=== PATIENT | female | born 1960 | race Caucasian/White ===

== ENCOUNTER 2017-12-27 11:21 | Inpatient (IN) | payer BC ==
[2017-12-27] VITALS (9 sets, daily range): BP systolic 106–145; BP diastolic 59–74; PULSE 72–86; RESP 18–20; TEMP 97.2–98.8; O2SAT 96–100
[~2017-12-27] VITALS: Ht 162.6 cm; Wt 57.6 kg
[2017-12-27] MEDS ORDERED: SODIUM CHLOR 0.9% 1000 ML INJ 1,000 ML IV ONE (12:15)
--- NOTE | 2017-12-27 12:22 | PD ---
HPI Chief Complaint: General Weakness Time Seen by Provider: 12:14 Travel History International Travel<30 days: No Contact w/Intl Traveler<30days: No Traveled to known affect area: No History of Present Illness HPI This 57-year-old female is complaining of generalized weakness and shortness of breath. She says she has not felt well for several weeks. She went to an urgent care center yesterday. They called her because her hemoglobin was 5.2 and told her to come to the emergency department. She has no history of anemia. She has not noted any blood in his stool. Her mother 20 years ago of colon cancer. She has not had fever or chills. She is on no medications. She eats a regular diet PFS Past Medical History Medical History: Denies Significant Hx Hx Anticoagulant Therapy: No Cardiovascular Problems: No Chemotherapy: No Cerebrovascular Accident: No Diabetes: No Respiratory: No Tetanus Vaccination: > 5 Years Influenza Vaccination: No Dilation and Curettage (D&C): Yes Past Surgical History Appendectomy: Yes Hysterectomy: No Social History Alcohol Use: No Tobacco Use: Yes (VAPOR) Substance Use: No Allergies-Medications (Allergen,Severity, Reaction): Coded Allergies: No Known Allergies (Unverified , 12/27/17) Reported Meds & Prescriptions Reported Meds & Active Scripts Active No Active Prescriptions or Reported Medications Review of Systems General / Constitutional: No: Fever, Chills Eyes: No: Diploplia HENT: Positive: Lightheadedness, No: Headaches Cardiovascular: No: Chest Pain or Discomfort, Palpitations Respiratory: Positive: Shortness of Breath Gastrointestinal: No: Nausea, Vomiting, Diarrhea, Abdominal Pain Genitourinary: No: Urgency Musculoskeletal: Positive: Weakness Neurologic: Positive: Weakness, No: Focal Abnormalities, Change in Mentation Psychiatric: No: Anxiety, Depression Hematologic/Lymphatic: No: Easy Bruising Physical Exam Narrative GENERAL: Patient appears very pale SKIN: Focused skin assessment warm/dry. Pale HEAD: Atraumatic. Normocephalic. EYES: Pupils equal and round. No scleral icterus. No injection or drainage. ENT: No nasal bleeding or discharge. Mucous membranes pink and moist. NECK: Trachea midline. No JVD. CARDIOVASCULAR: Regular rate and rhythm. No murmur appreciated. RESPIRATORY: No accessory muscle use. Clear to auscultation. Breath sounds equal bilaterally. GASTROINTESTINAL: Abdomen soft, non-tender, nondistended. Hepatic and splenic margins not palpable. Rectal exam there are no masses. Stool is brown but clearly positive for occult blood MUSCULOSKELETAL: No obvious deformities. No clubbing. No cyanosis. No edema. NEUROLOGICAL: Awake and alert. No obvious cranial nerve deficits. Motor grossly within normal limits. Normal speech. PSYCHIATRIC: Appropriate mood and affect; insight and judgment normal. Data Data Last Documented VS Vital Signs Date Time Temp Pulse Resp B/P (MAP) Pulse Ox O2 Delivery O2 Flow Rate FiO2 12/27/17 11:48 Room Air 12/27/17 11:41 98.8 86 18 145/72 (96) 100 Orders Orders Urinalysis - C+S If Indicated (12/27/17 11:33) Electrocardiogram (12/27/17 12:14) Complete Blood Count With Diff (12/27/17 12:14) Comprehensive Metabolic Panel (12/27/17 12:14) Prothrombin Time / Inr (Pt) (12/27/17 12:14) Act Partial Throm Time (Ptt) (12/27/17 12:14) Chest, Single Ap (12/27/17 12:14) Red Blood Cells (Rbc) (12/27/17 12:14) Vitamin B12 (12/27/17 12:14) Folate, Serum (12/27/17 12:14) Ferritin (12/27/17 12:14) Sodium Chlor 0.9% 1000 Ml Inj (Ns 1000 M (12/27/17 12:15) MDM Medical Decision Making Medical Screen Exam Complete: Yes Emergency Medical Condition: Yes Medical Record Reviewed: Yes Differential Diagnosis Differential includes iron deficiency anemia secondary to blood loss Narrative Course Stool is positive for blood. Yesterday her hemoglobin was 5.2 with MCV of 74 and MCH of 19 suggestive of iron deficiency Scripts No Active Prescriptions or Reported Meds Twin Morgan MD December 27, 2017 12:22
[2017-12-27 12:39] LABS: AUTOMATED NEUTROPHIL # 3.2 TH/MM3 (1.8-7.7); BASOPHIL # 0.2 TH/MM3 (0-0.2); BASOPHIL % 3.1 % (0.0-2.0); EOSINOPHIL # 0.1 TH/MM3 (0-0.4); EOSINOPHIL % 0.9 % (0.0-4.0); LYMPH % 26.4 % (9.0-44.0); LYMPHOCYTE # 1.5 TH/MM3 (1.0-4.8); MEAN CELL VOLUME 67.4 FL (80.0-100.0); MEAN CORPUSCULAR HEMOGLOBIN 19.6 PG (27.0-34.0); MEAN PLATELET VOLUME 8.1 FL (7.0-11.0); MONO % 10.8 % (0.0-8.0); MONOCYTE # 0.6 TH/MM3 (0-0.9); NEUT % 58.8 % (16.0-70.0); PLATELET COUNT 430 TH/MM3 (150-450); RED BLOOD COUNT 2.93 MIL/MM3 (4.00-5.30); RED CELL DISTRIBUTION WIDTH 17.5 % (11.6-17.2); WHITE BLOOD COUNT 5.6 TH/MM3 (4.0-11.0)
[2017-12-27 12:43] LABS: CHLORIDE 105 MEQ/L (98-107); SODIUM (NA) 138 MEQ/L (136-145)
--- NOTE | 2017-12-27 12:43 | RADRPT ---
EXAM DATE/TIME: 12/27/2017 12:28 [facility] COMPARISON: No previous studies available for comparison. INDICATIONS : Weakness and short of breath for two weeks. MEDICAL HISTORY : None. SURGICAL HISTORY : None. ENCOUNTER: Initial ACUITY: 1 day PAIN SCORE: 0/10 LOCATION: Bilateral chest FINDINGS: A single view of the chest demonstrates the lungs to be symmetrically aerated without evidence of mas s, infiltrate or effusion. The cardiomediastinal contours are unremarkable. Osseous structures are intact. CONCLUSION: No acute disease. Raffy Ko MD on December 27, 2017 at 12:41 Board Certified Radiologist. This report was verified electronically.
[2017-12-27 12:46] LABS: ALBUMIN 3.6 GM/DL (3.4-5.0); CALCIUM 8.9 MG/DL (8.5-10.1); GLUCOSE,RANDOM 94 MG/DL (74-106); HEMATOCRIT 19.8 % (35.0-46.0); HEMOGLOBIN 5.7 GM/DL (11.6-15.3)
[2017-12-27 12:47] LABS: BLOOD UREA NITROGEN 12 MG/DL (7-18)
[2017-12-27 12:50] LABS: ALT (GPT) 29 U/L (10-53); AST (GOT) 48 U/L (15-37); GLOMERULAR FILTRATION RATE 86 ML/MIN (>89); INTERNATIONAL NORMALIZED RATIO 0.9 RATIO; PROTHROMBIN TIME - PATIENT 9.6 SEC (9.8-11.6)
[2017-12-27 12:51] LABS: TOTAL BILIRUBIN ADULT 0.4 MG/DL (0.2-1.0)
[2017-12-27 12:52] LABS: ALKALINE PHOSPHATASE 128 U/L (45-117)
[2017-12-27 13:08] LABS: ACANTHOCYTES 1+ (NORMAL); KERATOCYTES 1+ (NORMAL); OVALOCYTES 2+ (NORMAL); TARGET CELLS 1+ (NORMAL)
[2017-12-27 13:09] LABS: STOMATOCYTES 1+ (NORMAL)
--- NOTE | 2017-12-27 14:23 | HHI.HP ---
[facility] Service [facility] Hospital[facility] Primary Care Physician Unknown Admission Diagnosis IRON DEFICIENCY ANEMIA Diagnoses: Chief Complaint: Fatigue with new anemia Travel History International Travel<30 Days: No Contact w/Intl Traveler <30 Da: No Traveled to Known Affected Are: No History of Present Illness Patient is a 57-year-old female with minimal past medical history he admits several weeks of increased malaise weakness and short of breath. She went to an urgent care for her first primary care visit and was called because the results of her hemoglobin was 5.2. Patient did come here for further evaluation is found to be fatigued and pale with a hemoglobin of 5.7 as well as heme positive stools in the emergency room. Patient reports she has never had any problems with anemia before her last menstrual period was over 10 years ago and patient says she is menopausal. She says there is a family history: Breast cancer. She has not seen any breast masses or had any change in stool output or weight loss. Patient is admitted to the hospital for further evaluation of this problem Review of Systems Constitutional: COMPLAINS OF: Fatigue, Dizziness, DENIES: Diaphoretic episodes , Fever, Weight gain, Weight loss, Chills, Change in appetite, Night Sweats Endocrine: DENIES: Abnorml menstrual pattern, Heat/cold intolerance, Polydipsia , Polyuria, Polyphagia Eyes: DENIES: Blurred vision, Diplopia, Eye inflammation, Eye pain, Vision loss , Photosensitivity, Double Vision Ears, nose, mouth, throat: DENIES: Tinnitus, Hearing loss, Vertigo, Nasal discharge, Oral lesions, Throat pain, Hoarseness, Ear Pain, Running Nose, Epistaxis, Sinus Pain, Toothache, Odynophagia Respiratory: DENIES: Apneas, Cough, Snoring, Wheezing, Hemoptysis, Sputum production, Shortness of breath Cardiovascular: DENIES: Chest pain, Palpitations, Syncope, Dyspnea on Exertion , PND, Lower Extremity Edema, Orthopnea, Claudication Gastrointestinal: DENIES: Abdominal pain, Black stools, Bloody stools, Constipation, Diarrhea, Nausea, Vomiting, Difficulty Swallowing, Anorexia Integumentary: DENIES: Abnormal pigmentation, Pruritus, Rash, Nail changes, Breast masses, Breast skin changes, Nipple discharge Hematologic/lymphatic: DENIES: Bruising, Lymphadenopathy Immunologic/allergic: DENIES: Eczema, Urticaria Neurologic: DENIES: Abnormal gait, Headache, Localized weakness, Paresthesias, Seizures, Speech Problems, Tremor, Poor Balance Psychiatric: DENIES: Anxiety, Confusion, Mood changes, Depression, Hallucinations, Agitation, Suicidal Ideation, Homicidal Ideation, Delusions Past Family Social History Past Medical History Denies Past Surgical History Appendectomy Reported Medications Denies Allergies: Coded Allergies: No Known Allergies (Unverified , 12/27/17) Active Ordered Medications Reviewed in the EMR Family History Mother had lymphoma and colon cancer but is alive Father had prostate cancer and Parkinson's and hypertension Sister from breast cancer Social History No tobacco but invades No alcohol dependency Physical Exam Vital Signs Vital Signs Date Time Temp Pulse Resp B/P (MAP) Pulse Ox O2 Delivery O2 Flow Rate FiO2 12/27/17 13:40 97.4 72 20 120/69 (86) 97 12/27/17 13:33 88 18 118/74 (89) 99 12/27/17 11:48 Room Air 12/27/17 11:41 98.8 86 18 145/72 (96) 100 Physical Exam GENERAL: This is a well-nourished, well-developed patient, pale and tired SKIN: No rashes, ecchymoses or lesions. Cool and dry. HEAD: Atraumatic. Normocephalic. No temporal or scalp tenderness. EYES: Pupils equal round and reactive. Extraocular motions intact. No scleral icterus. No injection or drainage. ENT: Nose without bleeding, purulent drainage or septal hematoma. Throat without erythema, tonsillar hypertrophy or exudate. Uvula midline. Airway patent. NECK: Trachea midline. No JVD or lymphadenopathy. Supple, nontender, no meningeal signs. CARDIOVASCULAR: Regular rate and rhythm without murmurs, gallops, or rubs. RESPIRATORY: Clear to auscultation. Breath sounds equal bilaterally. No wheezes , rales, or rhonchi. GASTROINTESTINAL: Abdomen soft, non-tender, nondistended. No hepato-splenomegaly , or palpable masses. No guarding. MUSCULOSKELETAL: Extremities without clubbing, cyanosis, or edema. No joint tenderness, effusion, or edema noted. No calf tenderness. Negative Homans sign bilaterally. NEUROLOGICAL: Awake and alert. Cranial nerves II through XII intact. Motor and sensory grossly within normal limits. Five out of 5 muscle strength in all muscle groups. Normal speech. Laboratory Laboratory Tests Test 12/27/17 12:00 White Blood Count 5.6 Red Blood Count 2.93 Hemoglobin 5.7 Hematocrit 19.8 Mean Corpuscular Volume 67.4 Mean Corpuscular Hemoglobin 19.6 Mean Corpuscular Hemoglobin Concent 29.0 Red Cell Distribution Width 17.5 Platelet Count 430 Mean Platelet Volume 8.1 Neutrophils (%) (Auto) 58.8 Lymphocytes (%) (Auto) 26.4 Monocytes (%) (Auto) 10.8 Eosinophils (%) (Auto) 0.9 Basophils (%) (Auto) 3.1 Neutrophils # (Auto) 3.2 Lymphocytes # (Auto) 1.5 Monocytes # (Auto) 0.6 Eosinophils # (Auto) 0.1 Basophils # (Auto) 0.2 CBC Comment AUTO DIFF Differential Comment AUTO DIFF CONFIRMED Target Cells 1+ Ovalocytes 2+ Stomatocytes 1+ Acanthocytes 1+ Keratocytes 1+ Prothrombin Time 9.6 Prothromb Time International Ratio 0.9 Activated Partial Thromboplast Time 21.9 Blood Urea Nitrogen 12 Creatinine 0.70 Random Glucose 94 Total Protein 8.0 Albumin 3.6 Calcium Level 8.9 Alkaline Phosphatase 128 Aspartate Amino Transf (AST/SGOT) 48 Alanine Aminotransferase (ALT/SGPT) 29 Total Bilirubin 0.4 Sodium Level 138 Potassium Level 4.5 Chloride Level 105 Carbon Dioxide Level 27.0 Anion Gap 6 Estimat Glomerular Filtration Rate 86 Result Diagram: 12/27/17 1200 12/27/17 1200 Imaging Last Impressions Chest X-Ray 12/27/17 1214 Signed Impressions: Service Date/Time: Wednesday, December 27, 2017 12:28 - CONCLUSION: No acute disease. MD Carlos Eduardo Chapman VTE Risk Assessment Caprini VTE Risk Assessment: No/Low Risk (score <= 1) VTE Pharm Contraindication: Active bleeding Caprini Risk Assessment Model Point Value = 1 Point Value = 2 Point Value = 3 Point Value = 5 Age 41-60 Minor surgery BMI > 25 kg/m2 Swollen legs Varicose veins or History of unexplained or recurrent spontaneous Oral contraceptives or hormone replacement Sepsis (< 1 month) Serious lung disease, including pneumonia (< 1 month) Abnormal pulmonary function Acute myocardial infarction Congestive heart failure (< 1 month) History of inflammatory bowel disease Medical patient at bed rest Age 61-74 Arthroscopic surgery Major open surgery (> 45 min) Laparoscopic surgery (> 45 min) Malignancy Confined to bed (> 72 hours) Immobilizing plaster cast Central venous access Age >= 75 History of VTE Family history of VTE Factor V Leiden Prothrombin [id number] Lupus anticoagulant Anticardiolipin antibodies Elevated serum homocysteine Heparin-induced thrombocytopenia Other congenital or acquired thrombophilia Stroke (< 1 month) Elective arthroplasty Hip, pelvis, or leg fracture Acute spinal cord injury (< 1 month) Prophylaxis Regimen Total Risk Factor Score Risk Level Prophylaxis Regimen 0-1 Low Early ambulation 2 Moderate Order ONE of the following: *Sequential Compression Device (SCD) *Heparin 5000 units SQ BID 3-4 Higher Order ONE of the following medications: *Heparin 5000 units SQ TID *Enoxaparin/Lovenox 40 mg SQ daily (WT < 150 kg, CrCl > 30 mL/min) *Enoxaparin/Lovenox 30 mg SQ daily (WT < 150 kg, CrCl > 10-29 mL/min) *Enoxaparin/Lovenox 30 mg SQ BID (WT < 150 kg, CrCl > 30 mL/min) AND/OR *Sequential Compression Device (SCD) 5 or more Highest Order ONE of the following medications: *Heparin 5000 units SQ TID (Preferred with Epidurals) *Enoxaparin/Lovenox 40 mg SQ daily (WT < 150 kg, CrCl > 30 mL/min) *Enoxaparin/Lovenox 30 mg SQ daily (WT < 150 kg, CrCl > 10-29 mL/min) *Enoxaparin/Lovenox 30 mg SQ BID (WT < 150 kg, CrCl > 30 mL/min) AND *Sequential Compression Device (SCD) Assessment and Plan Problem List: (1) GI bleed ICD Code: K92.2 - Gastrointestinal hemorrhage, unspecified Plan: Rule out ulcer versus mass Patient with strong family history of colon cancer and severe anemia GI consult pending Continue following up CT abdomen pelvis (2) Anemia ICD Code: D64.9 - Anemia, unspecified Plan: Symptomatic, acute, likely secondary to acute GI losses We will transfuse and follow trend Physician Certification 2 Midnight Certification Type: Admission for Inpatient Services Order for Inpatient Services The services are ordered in accordance with Medicare regulations or non- Medicare payer requirements, as applicable. In the case of services not specified as inpatient-only, they are appropriately provided as inpatient services in accordance with the 2-midnight benchmark. Estimated LOS (days): 2 2 days is the estimated time the patient will need to remain in the hospital, assuming treatment plan goals are met and no additional complications. Post-Hospital Plan: Home Mary Smith MD December 27, 2017 14:23
[2017-12-27] MEDS ORDERED: SODIUM CHLORIDE 0.9% FLUSH 10 ML FLUSH IV FLUSH PRN (14:30)
[2017-12-27] MEDS ORDERED: ONDANSETRON HCL 4 MG/2 ML VIAL IV PUSH PRN (14:30)
[2017-12-27 15:06] LABS: % SATURATION IRON PROFILE 5.1 % (20-50); FERRITIN 4 NG/ML (8-252); IRON (FE) 23 MCG/DL (50-170); TOTAL IRON BINDING CAPACITY 448 MCG/DL (250-450)
[2017-12-27 15:17] LABS: FOLATE GREATER THAN 20.0 NG/ML (3.1-17.5)
[2017-12-27] MEDS ORDERED: DIATRIZOATE MEGLUM/DIATRIZOATE SOD 9 ML CUP PO ONE (15:30)
[2017-12-27 17:35] LABS: BILIRUBIN, URINE NEG (NEG); BLOOD, URINE NEG (NEG); GLUCOSE,URINE NEG (NEG); KETONE, URINE NEG (NEG); NITRITE,URINE NEG (NEG); URINE COLOR YELLOW (YELLW/STRAW); URINE LEUKOCYTE ESTERASE NEG (NEG)
[2017-12-27 17:43] LABS: RBC, URINE 0-3 /hpf (0-3); WBC, URINE 0-2 /hpf (0-5)
[2017-12-27] MEDS: SODIUM CHLORIDE 0.9% FLUSH 10 ML FLUSH IV FLUSH SCH (21:00)
--- NOTE | 2017-12-27 23:21 | RADRPT ---
EXAM DATE/TIME: 12/27/2017 22:38 [facility] COMPARISON: No previous studies available for comparison. INDICATIONS : Blood in stool. ORAL CONTRAST: Prescribed oral contrast ingested. RADIATION DOSE: 7.30 CTDIvol (mGy) MEDICAL HISTORY : None SURGICAL HISTORY : Appendectomy. ENCOUNTER: Initial ACUITY: 1 week PAIN SCALE: 0/10 LOCATION: abdomen TECHNIQUE: Volumetric scanning of the abdomen and pelvis was performed. Using automated exposure control and adjustment of the mA and/or kV according to patient size, radiation dose was kept as low as reasonably achievable to obtain optimal diagnostic quality images. DICOM format image data is av ailable electronically for review and comparison. FINDINGS: LOWER LUNGS: Minimal atelectasis or scarring in the right middle lobe. Lung bases are otherwise c lear LIVER: 1.2 cm benign-appearing cyst is identified posteriorly in the right hepatic lobe. However, in the hepatic dome, is a 3.4 cm nodule that cannot be classified as a simple cyst and is concerning for a neoplastic process. There may be a second, 1 cm lesion laterally in the right hepatic lobe mor e inferiorly. There is no dilation of the biliary tree. No calcified gallstones. SPLEEN: Normal size without lesion. PANCREAS: Within normal limits. KIDNEYS: Normal in size and shape. There is no mass, stone, or hydronephrosis. ADRENAL GLANDS: Within normal limits. VASCULAR: There is no aortic aneurysm. BOWEL/MESENTERY: Abnormal bowel wall thickening in the region of the cecum. Regional prominent ly mph nodes measuring upwards of 1.6 cm in diameter.. ABDOMINAL WALL: Within normal limits. RETROPERITONEUM: Prominent 2 cm lymph node at the aortic bifurcation. BLADDER: No wall thickening or mass. REPRODUCTIVE: Within normal limits. INGUINAL: There is no lymphadenopathy or hernia. MUSCULOSKELETAL: Within normal limits for patient age. CONCLUSION: 1. 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 Possible second, 1 cm metastatic lesio n more inferiorly and laterally in the right hepatic lobe. At some point, a contrasted CT or MR of th e abdomen should be performed for further characterization. 2. Benign-appearing 1.2 cm cyst posteriorly in the right hepatic lobe. 3. Benign-appearing atelectasis or scarring medially in the right middle lobe. Remy Pastrana MD on December 27, 2017 at 23:10 Board Certified Radiologist. This report was verified electronically.
[2017-12-28] VITALS (7 sets, daily range): BP systolic 101–120; BP diastolic 56–64; PULSE 65–84; RESP 16–20; TEMP 96.6–98.6; O2SAT 69–99
[2017-12-28 06:32] LABS: AUTOMATED NEUTROPHIL # 3.3 TH/MM3 (1.8-7.7); BASOPHIL % 0.8 % (0.0-2.0); EOSINOPHIL # 0.1 TH/MM3 (0-0.4); EOSINOPHIL % 2.2 % (0.0-4.0); HEMATOCRIT 24.6 % (35.0-46.0); HEMOGLOBIN 7.9 GM/DL (11.6-15.3); LYMPH % 30.4 % (9.0-44.0); LYMPHOCYTE # 1.7 TH/MM3 (1.0-4.8); MEAN CORPUSCULAR HEMOGLOBIN 23.3 PG (27.0-34.0); MEAN PLATELET VOLUME 8.4 FL (7.0-11.0); MONO % 11.4 % (0.0-8.0); MONOCYTE # 0.6 TH/MM3 (0-0.9); NEUT % 55.2 % (16.0-70.0); PLATELET COUNT 374 TH/MM3 (150-450); RED BLOOD COUNT 3.37 MIL/MM3 (4.00-5.30); RED CELL DISTRIBUTION WIDTH 18.7 % (11.6-17.2); WHITE BLOOD COUNT 5.7 TH/MM3 (4.0-11.0)
[2017-12-28 07:43] LABS: ACANTHOCYTES 1+ (NORMAL); KERATOCYTES OCC (NORMAL); OVALOCYTES 1+ (NORMAL); TARGET CELLS 1+ (NORMAL)
[2017-12-28] MEDS: SODIUM CHLORIDE 0.9% FLUSH 10 ML FLUSH IV FLUSH SCH ×2 (09:00→20:14)
--- NOTE | 2017-12-28 11:23 | HHI.PR ---
Subjective Remarks Patient seen and evaluated. CT abdomen pelvis noted and results discussed with patient. GI consult appreciated. Objective Vitals Vital Signs Date Time Temp Pulse Resp B/P (MAP) Pulse Ox O2 Delivery O2 Flow Rate FiO2 12/28/17 08:19 72 12/28/17 08:00 98.4 65 16 106/58 (74) 99 12/28/17 04:00 97.4 70 20 102/56 (71) 98 12/28/17 03:30 97.4 70 20 102/56 97 12/28/17 00:05 98.6 84 18 101/64 98 12/27/17 23:53 97.2 83 18 108/59 97 12/27/17 23:50 97.2 83 18 108/59 (75) 97 12/27/17 22:15 98.4 72 18 106/60 97 12/27/17 20:00 98.4 74 18 112/60 (77) 100 12/27/17 16:52 98.6 74 20 121/74 12/27/17 16:05 97.8 72 20 107/66 (80) 96 12/27/17 13:40 97.4 72 20 120/69 (86) 97 12/27/17 13:33 88 18 118/74 (89) 99 12/27/17 11:48 Room Air 12/27/17 11:41 98.8 86 18 145/72 (96) 100 I/O 12/27/17 12/27/17 12/27/17 12/28/17 12/28/17 12/28/17 07:00 15:00 23:00 07:00 15:00 23:00 Intake Total 170 ml 1140 ml 1000 ml Balance 170 ml 1140 ml 1000 ml Intake Oral 120 ml 240 ml IV Total 1000 ml Packed Cells 800 ml Blood Product IV Normal Saline Flush 50 ml 100 ml # Voids 1 5 # Bowel Movements 5 Result Diagram: 12/28/17 0600 12/27/17 1200 Objective Remarks GENERAL: This is a well-nourished, well-developed patient, in no apparent distress. CARDIOVASCULAR: Regular rate and rhythm without murmurs, gallops, or rubs. RESPIRATORY: Clear to auscultation. Breath sounds equal bilaterally. No wheezes , rales, or rhonchi. GASTROINTESTINAL: Abdomen soft, non-tender, nondistended. Normal active bowel sounds MUSCULOSKELETAL: Extremities without clubbing, cyanosis, or edema. NEURO: Alert & Oriented x4 to person, place, time, situation. Moves all ext x4 A/P Problem List: (1) GI bleed ICD Code: K92.2 - Gastrointestinal hemorrhage, unspecified Plan: Worrisome for cecal malignancy. CT findings discussed with patient. For endoscopy in a.m. Hemoglobin improved Patient with strong family history of colon cancer and severe anemia (2) Anemia ICD Code: D64.9 - Anemia, unspecified Plan: Symptomatic, acute, likely secondary to acute GI losses improved after transfusion Mary Smith MD December 28, 2017 11:23
[2017-12-28] MEDS ORDERED: GADODIAMIDE PF 287 MG/ML 20 ML VIAL (for RAD MRI) IVCONTRAST ONE (11:46)
--- NOTE | 2017-12-28 13:47 | RADRPT ---
EXAM DATE/TIME: 12/28/2017 11:42 [facility] COMPARISON: CT ABDOMEN & PELVIS W/O CONTRAST, December 27, 2017, 22:38. INDICATIONS : Liver lesion. Blood in stools. CONTRAST: 11 cc Omniscan (gadodiamide) IV MEDICAL HISTORY : None. SURGICAL HISTORY : Appendectomy. ENCOUNTER: Initial ACUITY: 1 day PAIN SCORE: 0/10 LOCATION: Abdomen. TECHNIQUE: Multiplanar, multisequence magnetic resonance imaging of the abdomen was performed without and with i ntravenous contrast. FINDINGS: Problem specific findings: The axial T1 weighted images demonstrate a 3.2 x 3.3 cm area of decreased T1 signal within the centra l aspect of segment 8 of the right lobe of the liver. Following contrast enhancement the immediate po stcontrast imaging demonstrates vague enhancement around the margins of the lesion as well as some en hancement and most of segment 8 of the liver. On the subsequent images there is heterogeneous contras t enhancement of the lesion. There is increased T2 signal within the lesion on the diffusion restrict ion images. The overall appearance of this would be concerning for malignancy. This is a location whi ch would be amenable to CT-guided biopsy. The post contrast T1-weighted images demonstrate at least 3 other scattered subcentimeter lesions with subtle peripheral enhancement on the delayed postcontrast imaging. There is a 7 mm lesion seen in segment 7. There is a small lesion seen in segment 5 and a p robable lesion in the inferior aspect of segment 8 as well. The examination also demonstrates a cystic lesion measuring 1.5 x 1.0 cm in the posterior aspect of the right lobe. There is no contrast-enhancement within this. It is increased in signal the T2 we ighted images. Findings would be most compatible with a small simple cyst. The remainder of the hepat ic parenchyma demonstrates homogeneous enhancement. MRI source data: The appearance of the spleen, pancreas, adrenal glands and kidneys is within normal limits. There is no retroperitoneal lymphadenopathy. No free fluid is seen within the abdomen. CONCLUSION: 1. The examination demonstrates a 3.2 x 3.3 cm mass in segment 8 of the liver. This lesion would be c oncerning for malignancy. Less likely consideration would be an area of hepatic abscess. There is at least 3 other small lesions identified as described above. These are too small to definitively charac terize. The multiple nature of these lesions would make malignancy the primary consideration. 2. 1.5 x 1.0 cm cyst in the posterior aspect of the right lobe of the liver involving segment 7. Zeus Meade MD on December 28, 2017 at 13:02 Board Certified Radiologist. This report was verified electronically.
--- NOTE | 2017-12-28 14:01 | EKG ---
Date Performed: 12/27/2017 Time Performed: 12:26:11 PTAGE: 57 years EKG: Sinus rhythm NORMAL ECG NO PREVIOUS TRACING DOCTOR: Janelle Hale Interpretating Date/Time 12/28/2017 13:58:08
[2017-12-28] MEDS ORDERED: MAGNESIUM CITRATE SOLN 300 ML BTL PO ONE (16:45)
--- NOTE | 2017-12-28 17:13 | MB ---
cc: Aishwarya Crews MD, Beatrice S MD DATE: 12/28/2017 REFERRING PHYSICIAN: Dr. Mary Smith The patient was seen earlier in the day. HISTORY OF PRESENT ILLNESS: Ms. Shannon is a very pleasant 57-year-old lady with no major medical problems. She was sent to the emergency room for evaluation of severe anemia. The patient had regular blood work and was noted to have significant anemia. She denies any nausea, vomiting, abdominal pain, melena, hematemesis, hematochezia, dysphagia, odynophagia or weight loss. Her last colonoscopy was many, many years ago, approximately 20 years ago. She has family history of breast cancer and colon cancer, did not have a followup study since 20 years ago. Patient is feeling weak and shortness of breath. PAST MEDICAL HISTORY: She has none. PAST SURGICAL HISTORY: Appendectomy. MEDICATIONS: None. ALLERGIES: NO KNOWN ALLERGIES. FAMILY HISTORY: Mother had lymphoma and colon cancer. Father had prostate cancer and Parkinson disease. Sister from breast cancer. SOCIAL HISTORY: Denies smoking, drinking or drug use. REVIEW OF SYSTEMS: CONSTITUTIONAL: She denies any fever, chills, weight loss or weight gain. ENT: No alteration in her baseline hearing or visual activity. PULMONARY: Denies any chest pain, shortness of breath. GASTROINTESTINAL:As above. GENITOURINARY: Denies dysuria, hematuria. HEMATOLOGIC: Denies any history of anemia or bleeding disorder. SKIN: No alteration of baseline skin lesion. NEUROLOGIC: No history of TIA or CVA kind of symptoms. PHYSICAL EXAMINATION: GENERAL: She is sitting comfortably in bed in no acute distress. Pale. VITAL SIGNS: Her vitals are stable. Temperature is 97.4, pulse is 83, blood pressure 102/56. HEENT: PERRLA, pale. NECK: No JVD. No lymphadenopathy. CHEST: Clear to auscultation and palpation. HEART: S1, S2. No murmur. ABDOMEN: Soft, nontender. Bowel sounds are present. 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 No focal signs identified. LABORATORY DATA: Her hemoglobin on admission was 5.7, currently 7.9, MCV 67, currently 73, platelets 430, white count is 5.7. Her chemistry was suggestive of iron saturation of 5, AST 48, alkaline phosphatase 128. 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 MRI of the abdomen is recommended. That was ordered. Cyst in the posterior right hepatic lobe. ASSESSMENT AND PLAN: Ms. Shannon is a 57-year-old lady admitted with symptomatic iron deficiency anemia. CT suggested presence of the cecal mass, possible metastatic to the liver, most likely the cause of her symptoms. Strong family history of breast cancer and colon cancer. Last colonoscopy more than 20 years ago. Most likely, this is consistent with colon cancer. RECOMMENDATIONS: EGD, colonoscopy in the morning. Follow up MRI of the liver, tumor markers. May consider a CT ultrasound-guided liver biopsy and oncology consultation. . Risks, benefits of the above procedures were discussed with the patient and she is agreeing with it. I would like to thank Dr. Smith for referring her to our office for consultation. Thank you again. We will continue to follow the patient along with you. Aishwarya Crews MD BSB/SA , 04:53 PM , 05:13 PM
[2017-12-28] MEDS: LACTATED RINGER'S 1000 ML INJ 1,000 ML IV SCH (17:30)
[2017-12-28 20:19] LABS: CARCINOEMBRYONIC ANTIGEN 1.1 NG/ML (0.2-5.0)
[2017-12-28 20:56] LABS: CA 19-9 9.7 U/ML (0.0-35.0)
[2017-12-29] VITALS: BP 107/57; PULSE 66; RESP 20; TEMP 96.5; O2SAT 97
[2017-12-29] MEDS: LACTATED RINGER'S 1000 ML INJ 1,000 ML IV SCH (05:25)
[2017-12-29 06:56] LABS: AUTOMATED NEUTROPHIL # 2.5 TH/MM3 (1.8-7.7); BASOPHIL % 0.8 % (0.0-2.0); EOSINOPHIL # 0.1 TH/MM3 (0-0.4); EOSINOPHIL % 2.2 % (0.0-4.0); HEMATOCRIT 27.1 % (35.0-46.0); HEMOGLOBIN 8.4 GM/DL (11.6-15.3); LYMPH % 39.3 % (9.0-44.0); LYMPHOCYTE # 2.1 TH/MM3 (1.0-4.8); MEAN CELL VOLUME 74.6 FL (80.0-100.0); MEAN CORPUSCULAR HEMOGLOBIN 23.2 PG (27.0-34.0); MEAN CORPUSCULAR HGB CONC 31.1 % (32.0-36.0); MEAN PLATELET VOLUME 8.6 FL (7.0-11.0); MONO % 10.7 % (0.0-8.0); MONOCYTE # 0.6 TH/MM3 (0-0.9); PLATELET COUNT 398 TH/MM3 (150-450); RED BLOOD COUNT 3.64 MIL/MM3 (4.00-5.30); RED CELL DISTRIBUTION WIDTH 19.1 % (11.6-17.2); WHITE BLOOD COUNT 5.3 TH/MM3 (4.0-11.0)
[2017-12-29 07:28] LABS: TARGET CELLS 1+ (NORMAL)
[2017-12-29 07:29] LABS: ACANTHOCYTES 1+ (NORMAL); KERATOCYTES OCC (NORMAL); OVALOCYTES 1+ (NORMAL)
[2017-12-29 08:00] VITALS: BP 110/71; PULSE 68; RESP 16; TEMP 96.1; O2SAT 96
[2017-12-29 08:36] VITALS: BP 110/71; PULSE 68; RESP 16; TEMP 96.1; O2SAT 96
[2017-12-29] MEDS: SODIUM CHLORIDE 0.9% FLUSH 10 ML FLUSH IV FLUSH SCH (08:39)
--- NOTE | 2017-12-29 09:39 | PD.PROCEDR ---
GI Procedure PROCEDURE PERFORMED Upper endoscopy with biopsy Incomplete: INDICATION FOR PROCEDURE Iron deficiency anemia PROCEDURE: The procedure, risks and benefits were discussed with Ms. Shannon and informed consent was obtained. Anesthesia sedated her with Diprivan. She was placed in the left lateral decubitus position. EGD: The Pentax videoscope was introduced through the oropharynx and advanced to the second portion of the duodenum under direct visualization. Retroflexion was performed in the stomach. Biopsy from the antrum Colonoscopy: The Pentax videoscope was introduced through the rectum and advanced to sigmoid. Retroflexion was performed in the rectum. Colonic prep was poor ESTIMATED BLOOD LOSS: None SPECIMENS REMOVED: [] COMPLICATIONS: None IMPRESSION: Severe gastritis biopsy from the antrum Mild esophagitis grade A Duodenum is normal No sign of active bleeding Incomplete colonoscopy I only went about 15 cm with poor prep PLAN: No NSAIDs Protonix 40 mg daily Follow-up biopsy Repeat prep for colonoscopy tomorrow Nathaniel Allan MD December 29, 2017 09:39
--- NOTE | 2017-12-29 09:42 | HHI.GIFU ---
Subjective Remarks Patient laying in bed comfortably, no complain Objective Vitals I&O Vital Signs Date Time Temp Pulse Resp B/P (MAP) Pulse Ox O2 Delivery O2 Flow Rate FiO2 12/29/17 08:36 96.1 68 16 110/71 (84) 96 12/29/17 08:00 96.1 68 16 110/71 (84) 96 12/29/17 00:00 96.5 66 20 107/57 (74) 97 12/28/17 20:00 98.3 68 20 120/61 (80) 97 12/28/17 16:00 96.6 72 16 119/64 (82) 98 I/O 12/28/17 12/28/17 12/28/17 12/29/17 12/29/17 12/29/17 07:00 15:00 23:00 07:00 15:00 23:00 Intake Total 1140 ml 1000 ml 600 ml 971 ml Balance 1140 ml 1000 ml 600 ml 971 ml Intake Oral 240 ml 600 ml 0 ml IV Total 1000 ml 971 ml Packed Cells 800 ml Blood Product IV Normal Saline Flush 100 ml # Voids 5 3 2 # Bowel Movements 5 Laboratory Laboratory Tests Test 12/28/17 16:20 12/29/17 06:09 Tumor Marker Alpha Fetoprotein 3.1 Carcinoembryonic Antigen 1.1 CA 19-9 Antigen 9.7 Hepatitis A IgM Antibody NONREACTIVE Hepatitis B Surface Antigen NONREACTIVE Hepatitis B Core IgM Antibody NONREACTIVE Hepatitis C IgG Antibody NONREACTIVE White Blood Count 5.3 Red Blood Count 3.64 Hemoglobin 8.4 Hematocrit 27.1 Mean Corpuscular Volume 74.6 Mean Corpuscular Hemoglobin 23.2 Mean Corpuscular Hemoglobin Concent 31.1 Red Cell Distribution Width 19.1 Platelet Count 398 Mean Platelet Volume 8.6 Neutrophils (%) (Auto) 47.0 Lymphocytes (%) (Auto) 39.3 Monocytes (%) (Auto) 10.7 Eosinophils (%) (Auto) 2.2 Basophils (%) (Auto) 0.8 Neutrophils # (Auto) 2.5 Lymphocytes # (Auto) 2.1 Monocytes # (Auto) 0.6 Eosinophils # (Auto) 0.1 Basophils # (Auto) 0.0 CBC Comment AUTO DIFF Differential Comment AUTO DIFF CONFIRMED Target Cells 1+ Ovalocytes 1+ Acanthocytes 1+ Keratocytes OCC Physical Exam HEENT: Pupils round and reactive to light; normocephalic; atraumatic; no jaundice. Throat is clear. NECK: Neck is supple, no JVD, no lymphadenopathy. CHEST: Chest is clear to auscultation and percussion. CARDIAC: Regular rate and rhythm with no murmur gallop or rubs. ABDOMEN: Soft, nondistended, nontender; no hepatosplenomegaly; bowel sounds are present in all four quadrants. EXTREMITIES: No clubbing, cyanosis, or edema. SKIN: Normal; no rash; no jaundice. LEAD CARPENTER: No focal deficits; alert and oriented times three. Assessment and Plan Plan Patient has significant anemia with iron deficiency, had an upper endoscopy today, incomplete colonoscopy because of poor prep IMPRESSION: Severe gastritis biopsy from the antrum Mild esophagitis grade A Duodenum is normal No sign of active bleeding Incomplete colonoscopy I only went about 15 cm with poor prep PLAN: No NSAIDs Protonix 40 mg daily Follow-up biopsy Repeat prep for colonoscopy tomorrow Nathaniel Allan MD December 29, 2017 09:42
[2017-12-29] MEDS ORDERED: MAGNESIUM CITRATE SOLN 300 ML BTL PO ONE (10:00)
[2017-12-29 12:00] VITALS: BP 111/59; PULSE 60; RESP 16; TEMP 97.4; O2SAT 97
--- NOTE | 2017-12-29 13:32 | HHI.DCPOC ---
Discharge Care Plan Diagnosis: (1) Anemia (2) Liver mass (3) GI bleed Goals to Promote Your Health * To prevent worsening of your condition and complications * To maintain your health at the optimal level Directions to Meet Your Goals Take your medications as prescribed Follow your dietary instruction Follow activity as directed Keep your appointments as scheduled Take your immunizations and boosters as scheduled If your symptoms worsen call your PCP, if no PCP go to Urgent Care Center or Emergency Room Smoking is Dangerous to Your Health. Avoid second hand smoke Call the 24-hour hour crisis hotline for domestic abuse at Mary Smith MD December 29, 2017 13:32
--- NOTE | 2017-12-29 13:34 | HHI.DS ---
Discharge Summary Admission Date December 27, 2017 at 13:15 Discharge Date: December 29, 2017 Admitting Diagnosis IRON DEFICIENCY ANEMIA (1) GI bleed ICD Code: K92.2 - Gastrointestinal hemorrhage, unspecified (2) Anemia ICD Code: D64.9 - Anemia, unspecified Procedures Upper endoscopy: Gastritis Brief History - From Admission Patient is a 57-year-old female with minimal past medical history he admits several weeks of increased malaise weakness and short of breath. She went to an urgent care for her first primary care visit and was called because the results of her hemoglobin was 5.2. Patient did come here for further evaluation is found to be fatigued and pale with a hemoglobin of 5.7 as well as heme positive stools in the emergency room. Patient reports she has never had any problems with anemia before her last menstrual period was over 10 years ago and patient says she is menopausal. She says there is a family history: Breast cancer. She has not seen any breast masses or had any change in stool output or weight loss. Patient is admitted to the hospital for further evaluation of this problem CBC/BMP: 12/29/17 0609 12/27/17 1200 Significant Findings Laboratory Tests Test 12/27/17 12:00 12/27/17 17:00 12/28/17 06:00 12/28/17 16:20 Red Blood Count 2.93 MIL/MM3 (4.00-5.30) 3.37 MIL/MM3 (4.00-5.30) Hemoglobin 5.7 GM/DL (11.6-15.3) 7.9 GM/DL (11.6-15.3) Hematocrit 19.8 % (35.0-46.0) 24.6 % (35.0-46.0) Mean Corpuscular Volume 67.4 FL (80.0-100.0) 73.0 FL (80.0-100.0) Mean Corpuscular Hemoglobin 19.6 PG (27.0-34.0) 23.3 PG (27.0-34.0) Mean Corpuscular Hemoglobin Concent 29.0 % (32.0-36.0) Red Cell Distribution Width 17.5 % (11.6-17.2) 18.7 % (11.6-17.2) Monocytes (%) (Auto) 10.8 % (0.0-8.0) 11.4 % (0.0-8.0) Basophils (%) (Auto) 3.1 % (0.0-2.0) Target Cells 1+ (NORMAL) 1+ (NORMAL) Ovalocytes 2+ (NORMAL) 1+ (NORMAL) Stomatocytes 1+ (NORMAL) Acanthocytes 1+ (NORMAL) 1+ (NORMAL) Keratocytes 1+ (NORMAL) OCC (NORMAL) Prothrombin Time 9.6 SEC (9.8-11.6) Activated Partial Thromboplast Time 21.9 SEC (24.3-30.1) Alkaline Phosphatase 128 U/L (45-117) Aspartate Amino Transf (AST/SGOT) 48 U/L (15-37) Estimat Glomerular Filtration Rate 86 ML/MIN (>89) Iron Level 23 MCG/DL (50-170) Percent Iron Saturation 5.1 % (20-50) Ferritin 4 NG/ML (8-252) Folate GREATER THAN 20.0 NG/ML Test 12/29/17 06:09 Red Blood Count 3.64 MIL/MM3 (4.00-5.30) Hemoglobin 8.4 GM/DL (11.6-15.3) Hematocrit 27.1 % (35.0-46.0) Mean Corpuscular Volume 74.6 FL (80.0-100.0) Mean Corpuscular Hemoglobin 23.2 PG (27.0-34.0) Mean Corpuscular Hemoglobin Concent 31.1 % (32.0-36.0) Red Cell Distribution Width 19.1 % (11.6-17.2) Monocytes (%) (Auto) 10.7 % (0.0-8.0) Target Cells 1+ (NORMAL) Ovalocytes 1+ (NORMAL) Acanthocytes 1+ (NORMAL) Keratocytes OCC (NORMAL) PE at Discharge GENERAL: This is a well-nourished, well-developed patient, in no apparent distress. CARDIOVASCULAR: Regular rate and rhythm without murmurs, gallops, or rubs. RESPIRATORY: Clear to auscultation. Breath sounds equal bilaterally. No wheezes , rales, or rhonchi. GASTROINTESTINAL: Abdomen soft, non-tender, nondistended. Normal active bowel sounds MUSCULOSKELETAL: Extremities without clubbing, cyanosis, or edema. NEURO: Alert & Oriented x4 to person, place, time, situation. Moves all ext x4 Pt update on day of discharge Patient doing well today. Outpatient arrangements for liver biopsy and for colonoscopy are made. Discussed at length with patient. I did call and make the patient's appointment with radiology Hospital Course Patient seen and evaluated. She is seen and treated for acute anemia secondary to likely GI blood losses. Patient has undergone endoscopy. She was felt to have both upper and lower endoscopy but was unable to complete lower endoscopy due to poor prep. Patient's outpatient endoscopy is arranged. Patient has now found to have liver mass with adenopathy concerning for colorectal cancer. Patient is currently in the process of having that evaluated. Status post upper endoscopy with improvement in symptoms and without new complaints. Discharge plans discussed with patient and spouse for outpatient follow-up. Pt Condition on Discharge: Good Discharge Disposition: Discharge Home Discharge Time: > 30 minutes Discharge Instructions DIET: Follow Instructions for: As Tolerated, No Restrictions Activities you can perform: Regular-No Restrictions Follow up Referrals: Appointment for Follow Up - 01/01/18 with radiology Gastroenterology - 1 Week with Nathaniel Allan MD Medication Profile: No Active Prescriptions or Reported Meds Additional Information Keep follow-up appointment for liver biopsy and for colonoscopy Mary Smith MD December 29, 2017 13:34
[2017-12-29] MEDS ORDERED: PANT40TA3 PO (14:08)
[2017-12-29] MEDS ORDERED: PEG (High)/E-LYTE SOLN 4000 ML BTL PO ONE (16:00)
== END 2017-12-29 15:30 | disposition home or self-care (01) | DRG 812 ==
LOC: PHED 11:21 → PHEDA 13:15 → PH3A 13:40
PROVIDERS: ADMIT Hospitalist; ATTEND Hospitalist
PROC: 30233N1 Transfusion of Nonautologous Red Blood Cells into Peripheral Vein, Percutaneous Approach (ICD-10-PCS; 2017-12-27)
PROC: 0DB68ZX Excision of Stomach, Via Natural or Artificial Opening Endoscopic, Diagnostic (ICD-10-PCS; principal; 2017-12-29 09:20)
PROC: 0DJD8ZZ Inspection of Lower Intestinal Tract, Via Natural or Artificial Opening Endoscopic (ICD-10-PCS; 2017-12-29 09:20)
DX: D50.9 Iron deficiency anemia, unspecified (principal); R16.0 Hepatomegaly, not elsewhere classified; K92.2 Gastrointestinal hemorrhage, unspecified; K29.70 Gastritis, unspecified, without bleeding; K20.9 Esophagitis, unspecified; Z80.3 Family history of malignant neoplasm of breast; Z80.0 Family history of malignant neoplasm of digestive organs; Z80.7 Family history of other malignant neoplasms of lymphoid, hematopoietic and related tissues; Z80.42 Family history of malignant neoplasm of prostate
CPT/HCPCS: 36430; 71045; 74176; 74183; 80053; 80074; 81001; 82105; 82378; 82607; 82728; 82746; 83540; 83550; 84443; 85025; 85610; 85730; 86301; 86850; 86900; 86901; 86920; 88305; 88312; 93005; A9579; J7030; J7120; P9016; Q9963

== ENCOUNTER 2018-01-01 06:06 | Day surgery (SDC) | payer BC ==
[~2018-01-01] VITALS: Ht 162.6 cm; Wt 57.3 kg
[2018-01-01] VITALS (10 sets, daily range): BP systolic 93–129; BP diastolic 50–81; PULSE 60–80; RESP 16–20; TEMP 97.6–97.7; O2SAT 96–99
[~2018-01-01 06:06] MED LIST: PANT40TA3 PO
[2018-01-01] MEDS ORDERED: MIDAZOLAM HCL 5 MG/5 ML VIAL ONE (07:20)
[2018-01-01] MEDS ORDERED: fentaNYL CITRATE 250 MCG/5 ML AMP ONE (07:20)
[2018-01-01] MEDS ORDERED: THROMBIN (TOPICAL) 5,000 UNIT VIAL ONE (08:08)
--- NOTE | 2018-01-01 09:06 | RADRPT ---
EXAM DATE/TIME: 01/01/2018 08:00 [facility] COMPARISON: No previous studies available for comparison. INDICATIONS : Liver mass SEDATION TIME: 20 minutes BIOPSY SITE: liver MEDICATION(S): 1.) 2 mg midazolam (Versed) IV 2.) 100 mcg fentanyl (Sublimaze) IV DEVICE(S): 1.) 18 gauge gaxiola 2.) 17 gauge introducer MEDICAL HISTORY : None. SURGICAL HISTORY : Appendectomy. ENCOUNTER: Initial ACUITY: 1 day PAIN SCORE: 0/10 LOCATION: Right upper quadrant A total of one core specimen(s) were obtained and sent to the laboratory for pathologic evaluation. PROCEDURE: 1. CT guided liver biopsy. Prior to the procedure informed consent was obtained. Any appropriate prior imaging studies were rev iewed. Using automated exposure control and adjustment of the mA and/or kV according to patient size, radiat ion dose was kept as low as reasonably achievable to obtain optimal diagnostic quality images. DICOM format image data is available electronically for review and comparison. The site was prepped in a sterile fashion. Full sterile technique was used, including cap, mask, rg rile gloves and gown and a large sterile sheet. Hand hygiene and 2% chlorhexidine and/or betadine/al cohol prep was utilized per protocol for cutaneous antisepsis. The skin and subcutaneous tissues wer e infiltrated with local anesthetic solution. Under CT guidance 18 gauge core biopsy of the lesion was obtained. Tract was embolize the small amou nt of Gelfoam and thrombin. Follow-up CT scan reveals no hemorrhage or pneumothorax.. The patient tolerated the procedure well and there were no complications. The patient was returned to the Radiology Outpatient Unit in stable condition. CONCLUSION: Uncomplicated CT guided biopsy of Mass in dome of the liver. There is no hemorrhage or pneumothorax. Chest x-ray at 10 AM is pending.. Riaz Meade MD FACR on January 01, 2018 at 9:03 Board Certified Radiologist. This report was verified electronically.
--- NOTE | 2018-01-01 10:22 | RADRPT ---
EXAM DATE/TIME: 01/01/2018 09:51 [facility] COMPARISON: CHEST SINGLE AP, December 27, 2017, 12:28. INDICATIONS : Post right side posterior liver biopsy. MEDICAL HISTORY : blood in stool, liver lesion SURGICAL HISTORY : Appendectomy. ENCOUNTER: Initial ACUITY: 1 day PAIN SCORE: 0/10 LOCATION: Bilateral chest FINDINGS: A single frontal expiratory view of the chest was performed. The lungs are symmetrically aerated and clear. No evidence of pneumothorax. Mediastinal structures are in the midline. The cardio-mediastinal contours and bronchopulmonary markings are unremarkable for an expiratory exam . Osseous structures are intact. CONCLUSION: No acute disease. Cameron Malhotra MD on January 01, 2018 at 10:19 Board Certified Radiologist. This report was verified electronically.
== END 2018-01-01 13:52 | disposition home or self-care (01) ==
LOC: HRAD 06:06 → HRIP 06:35 → HRAD 13:52
PROVIDERS: ATTEND Hospitalist
DX: R16.0 Hepatomegaly, not elsewhere classified (principal); K21.9 Gastro-esophageal reflux disease without esophagitis
CPT/HCPCS: 47000; 71045; 77012; 88307; 88341; 88342; 99152; 99153; J2250; J3010

== ENCOUNTER 2018-01-05 12:31 | Emergency (ER) | payer BC ==
[~2018-01-05] VITALS: Ht 162.6 cm; Wt 56.0 kg
[2018-01-05 12:36] VITALS: BP 133/79; PULSE 77; RESP 16; TEMP 98.6; O2SAT 99
--- NOTE | 2018-01-05 12:55 | PD ---
HPI Chief Complaint: General Weakness Time Seen by Provider: 12:54 Travel History International Travel<30 days: No Contact w/Intl Traveler<30days: No Traveled to known affect area: No History of Present Illness HPI 58-year-old female came to the emergency room with history of bilateral upper extremity weakness and numbness. Patient says that 10 days ago she was in the emergency room for similar symptoms and was diagnosed with significant anemia. She was admitted and transfused 2 units of blood. Patient was discharged home and was asked to get an outpatient liver biopsy done which was done last Monday. She does not know the result of it. Patient is wondering if she has become anemic again and also wanted to know the results of the liver biopsy. She does not have a primary care physician and has not seen a doctor in many years up until 10 days ago when she was admitted. Vital signs are otherwise stable. No history of dizziness or lightheadedness. Patient has not noticed any blood in her stool. No history of abdominal pain or chest pain. She was discharged home on Protonix which she has been taking as prescribed. [facility] Past Medical History Narrative Medical List of her past medical, surgical, social and family history is reviewed from the nursing note. Hx Anticoagulant Therapy: No Cancer: No Cardiovascular Problems: No Chemotherapy: No Cerebrovascular Accident: No Diabetes: No Endocrine: No Genitourinary: No Hepatitis: No Hiatal Hernia: No Immune Disorder: No Musculoskeletal: No Neurologic: No Psychiatric: No Reproductive: No Respiratory: No Thyroid Disease: No Dilation and Curettage (D&C): Yes Past Surgical History Abdominal Surgery: No AICD: Yes Appendectomy: Yes Cardiac Surgery: No Ear Surgery: No Endocrine Surgery: No Eye Surgery: No Genitourinary Surgery: No Gynecologic Surgery: No Hysterectomy: No Joint Replacement: No Oral Surgery: No Pacemaker: No Thoracic Surgery: No Social History Alcohol Use: No Tobacco Use: Yes (VAPOR) Substance Use: No Allergies-Medications (Allergen,Severity, Reaction): Coded Allergies: No Known Allergies (Unverified , 01/05/18) Comments No known drug allergies. Reported Meds & Prescriptions Reported Meds & Active Scripts Active Amoxicillin 500 Mg Tab 1,000 Mg PO BID 14 Days Clarithromycin 500 Mg Tab 500 Mg PO BID 14 Days Pantoprazole (Pantoprazole Sodium) 40 Mg Tab 40 Mg PO DAILY Narrative Medication List of her home medications reviewed from the nursing note. Review of Systems Except as stated in HPI: all other systems reviewed are Neg Physical Exam Narrative GENERAL: Awake, alert, mild distress SKIN: Focused skin assessment warm/dry. Pale HEAD: Atraumatic. Normocephalic. EYES: Pupils equal and round. No scleral icterus. No injection or drainage. ENT: No nasal bleeding or discharge. Mucous membranes pink and moist. NECK: Trachea midline. No JVD. CARDIOVASCULAR: Regular rate and rhythm. No murmur appreciated. RESPIRATORY: No accessory muscle use. Clear to auscultation. Breath sounds equal bilaterally. GASTROINTESTINAL: Abdomen soft, non-tender, nondistended. Hepatic and splenic margins not palpable. MUSCULOSKELETAL: No obvious deformities. No clubbing. No cyanosis. No edema. NEUROLOGICAL: Awake and alert. No obvious cranial nerve deficits. Motor grossly within normal limits. Normal speech. PSYCHIATRIC: Appropriate mood and affect; insight and judgment normal. Data Data Last Documented VS Vital Signs Date Time Temp Pulse Resp B/P (MAP) Pulse Ox O2 Delivery O2 Flow Rate FiO2 01/05/18 13:33 95 16 112/59 (76) 99 Room Air 01/05/18 12:36 98.6 Orders Orders Complete Blood Count With Diff (01/05/18 13:06) Basic Metabolic Panel (Bmp) (01/05/18 13:06) Type And Screen (01/05/18 13:06) ^ Saline Lock (01/05/18 13:06) Ct Brain W/O Iv Contrast(Rout) (01/05/18 ) Labs Laboratory Tests Test 01/05/18 13:15 White Blood Count 6.8 TH/MM3 Red Blood Count 4.19 MIL/MM3 Hemoglobin 9.1 GM/DL Hematocrit 30.8 % Mean Corpuscular Volume 73.6 FL Mean Corpuscular Hemoglobin 21.8 PG Mean Corpuscular Hemoglobin Concent 29.6 % Red Cell Distribution Width 21.1 % Platelet Count 386 TH/MM3 Mean Platelet Volume 8.5 FL Neutrophils (%) (Auto) 61.4 % Lymphocytes (%) (Auto) 26.2 % Monocytes (%) (Auto) 9.8 % Eosinophils (%) (Auto) 0.9 % Basophils (%) (Auto) 1.7 % Neutrophils # (Auto) 4.1 TH/MM3 Lymphocytes # (Auto) 1.8 TH/MM3 Monocytes # (Auto) 0.7 TH/MM3 Eosinophils # (Auto) 0.1 TH/MM3 Basophils # (Auto) 0.1 TH/MM3 CBC Comment AUTO DIFF Differential Comment AUTO DIFF CONFIRMED Blood Urea Nitrogen 12 MG/DL Creatinine 0.67 MG/DL Random Glucose 92 MG/DL Calcium Level 9.1 MG/DL Sodium Level 137 MEQ/L Potassium Level 4.0 MEQ/L Chloride Level 102 MEQ/L Carbon Dioxide Level 30.6 MEQ/L Anion Gap 4 MEQ/L Estimat Glomerular Filtration Rate 90 ML/MIN MDM Medical Decision Making Medical Screen Exam Complete: Yes Emergency Medical Condition: Yes Medical Record Reviewed: Yes Differential Diagnosis Symptomatic anemia, brain metastases, intracranial bleed Narrative Course 1:47 PM had to come back and look at her previous hospitalization with the test done and the results. Turns out patient had a CAT scan as well as MRI of the abdomen and pelvis that showed a lesion in her liver. This was questioned to be neoplastic and hence patient was sent for the liver biopsy. Patient also had an upper endoscopy done and the pathology report was followed up by me. Colonoscopy was attempted but was unsuccessful due to poor prep. The liver biopsy shows metastatic disease with the cells consistent with adenocarcinoma of the colon. The stomach gastric mucosa biopsy shows H. pylori lesions. Based on this I went back to the patient and discussed the results with her. At this point patient said that she was told about the liver lesion but she did not know about it being cancer or the possibility of colon cancer. She has an appointment for an outpatient endoscopy for the . Currently waiting for the blood test results and CAT scan result. If all these test results are within normal limits she will be discharged. I will try to communicate with the oncologist so that she can get a follow-up with them. I have explained all this to the patient and her as well. Patient seem to take the news well. 2:01 PM CBC and BMP are resulted. Patient has a hemoglobin improved and her last hemoglobin upon discharge. She does not require blood transfusion. Chemistries within normal limits. Head CT was read as negative. I put a call out for the hematologists and I will speak with him to get a possible outpatient follow-up recommendation. Patient can be discharged home after this. 2:17 PM the case was discussed with Ze Gonzalez who is the PA for hematology group. She will fax the demographics of the patient to the new patient referral so that patient gets a call in an appointment within a week. I am comfortable discharging her home. She will go home on prescriptions for H pylori. Procedures EKG Prior to Arrival: No Diagnosis Primary Impression: Colon cancer metastasized to liver Additional Impression: Helicobacter pylori gastritis Additional Instructions: Please follow-up with the GI specialist to get the outpatient colonoscopy as per your appointment. Take the medication as per the prescription direction. Please call [phone] which is the number for new patient referral for cancer patients. This is to get an appointment with a cancer specialist. Med/Other Pt SpecificInfo: Prescription(s) given Scripts Amoxicillin (Amoxicillin) 500 Mg Tab 1000 MG PO BID for Infection for 14 Days, #56 TAB 0 Refills Prov: Jean-Claude Deutsch MD 01/05/18 Clarithromycin (Clarithromycin) 500 Mg Tab 500 MG PO BID for Infection for 14 Days, #28 TAB 0 Refills Prov: Jean-Claude Deutsch MD 01/05/18 Disposition: 01 DISCHARGE HOME Condition: Stable Jean-Claude Deutsch MD January 05, 2018 12:55
[2018-01-05 13:33] VITALS: BP 112/59; PULSE 95; RESP 16; O2SAT 99
[2018-01-05 13:43] LABS: AUTOMATED NEUTROPHIL # 4.1 TH/MM3 (1.8-7.7); BASOPHIL # 0.1 TH/MM3 (0-0.2); BASOPHIL % 1.7 % (0.0-2.0); EOSINOPHIL # 0.1 TH/MM3 (0-0.4); EOSINOPHIL % 0.9 % (0.0-4.0); HEMATOCRIT 30.8 % (35.0-46.0); HEMOGLOBIN 9.1 GM/DL (11.6-15.3); LYMPH % 26.2 % (9.0-44.0); LYMPHOCYTE # 1.8 TH/MM3 (1.0-4.8); MEAN CELL VOLUME 73.6 FL (80.0-100.0); MEAN CORPUSCULAR HEMOGLOBIN 21.8 PG (27.0-34.0); MEAN PLATELET VOLUME 8.5 FL (7.0-11.0); MONO % 9.8 % (0.0-8.0); MONOCYTE # 0.7 TH/MM3 (0-0.9); NEUT % 61.4 % (16.0-70.0); PLATELET COUNT 386 TH/MM3 (150-450); RED BLOOD COUNT 4.19 MIL/MM3 (4.00-5.30); RED CELL DISTRIBUTION WIDTH 21.1 % (11.6-17.2); WHITE BLOOD COUNT 6.8 TH/MM3 (4.0-11.0)
--- NOTE | 2018-01-05 13:47 | RADRPT ---
EXAM DATE/TIME: 01/05/2018 13:32 [facility] COMPARISON: No previous studies available for comparison. INDICATIONS : General weakness. Dizziness. RADIATION DOSE: 51.46 CTDIvol (mGy) MEDICAL HISTORY : Gastroesophageal reflux disease. SURGICAL HISTORY : Appendectomy. ENCOUNTER: Initial ACUITY: 1 day PAIN SCALE: 0/10 LOCATION: cranial TECHNIQUE: Multiple contiguous axial images were obtained of the head. Using automated exposure control and adj ustment of the mA and/or kV according to patient size, radiation dose was kept as low as reasonably a chievable to obtain optimal diagnostic quality images. DICOM format image data is available electro nically for review and comparison. FINDINGS: CEREBRUM: The ventricles are normal for age. No evidence of midline shift, mass lesion, hemorrhage or acute in farction. No extra-axial fluid collections are seen. POSTERIOR FOSSA: The cerebellum and brainstem are intact. The 4th ventricle is midline. The cerebellopontine angle i s unremarkable. EXTRACRANIAL: The visualized portion of the orbits is intact. SKULL: The calvaria is intact. No evidence of skull fracture. CONCLUSION: Negative for acute process Riaz Meade MD FACR on January 05, 2018 at 13:44 Board Certified Radiologist. This report was verified electronically.
[2018-01-05 13:48] LABS: MEAN CORPUSCULAR HGB CONC 29.6 % (32.0-36.0)
[2018-01-05 13:50] LABS: CALCIUM 9.1 MG/DL (8.5-10.1)
[2018-01-05 13:51] LABS: BICARBONATE 30.6 MEQ/L (21.0-32.0)
[2018-01-05 13:54] LABS: CREATININE 0.67 MG/DL (0.50-1.00)
[2018-01-05] MEDS ORDERED: AMOX500T PO (14:07)
[2018-01-05] MEDS ORDERED: CLAR500T PO (14:07)
== END 2018-01-05 15:02 | disposition home or self-care (01) ==
LOC: PHED 12:31
DX: C18.9 Malignant neoplasm of colon, unspecified (principal); C78.7 Secondary malignant neoplasm of liver and intrahepatic bile duct; K29.60 Other gastritis without bleeding; B96.81 Helicobacter pylori [H. pylori] as the cause of diseases classified elsewhere; Z72.0 Tobacco use
CPT/HCPCS: 70450; 80048; 85025; 86850; 86900; 86901

== ENCOUNTER 2018-01-15 11:40 | Emergency (ER) | payer BC ==
[~2018-01-15 11:40] MED LIST changes: +AMOX500T PO; +CLAR500T PO
[2018-01-15 11:46] VITALS: BP 118/71; PULSE 100; RESP 18; TEMP 98.7; O2SAT 98
--- NOTE | 2018-01-15 13:27 | PD ---
HPI Chief Complaint: Abdominal Pain Time Seen by Provider: 13:18 Travel History International Travel<30 days: No Contact w/Intl Traveler<30days: No Traveled to known affect area: No History of Present Illness HPI This 58-year-old female is complaining of abdominal pain. She has been having abdominal pain for about 2 days. She has not vomited. The pain is worse when she eats. Her appetite has been diminished. She presented here on December 28 with severe anemia. At that time she was found to have heme positive stool. She had imaging studies that showed lesions in the liver consistent with metastatic disease. A liver biopsy has shown that this is most likely secondary to colon adenocarcinoma. She has had an upper endoscopy but her lower endoscopy did not have a adequate prep. She is seeing Dr. Ragland. Dr. Ragland recommended that she come here to have a CT scan to see if she might of obstruction. She has not vomited. PFSH Past Medical History Hx Anticoagulant Therapy: No Cancer: No Cardiovascular Problems: No Chemotherapy: No Cerebrovascular Accident: No Diabetes: No Diminished Hearing: No Endocrine: No Gastrointestinal Disorders: Yes (GERD) Genitourinary: No Hepatitis: No Hiatal Hernia: No Immune Disorder: No Musculoskeletal: No Neurologic: No Psychiatric: No Reproductive: No Respiratory: No Thyroid Disease: No Menopausal: Yes Dilation and Curettage (D&C): Yes Past Surgical History Abdominal Surgery: No AICD: Yes Appendectomy: Yes Cardiac Surgery: No Ear Surgery: No Endocrine Surgery: No Eye Surgery: No Genitourinary Surgery: No Gynecologic Surgery: No Hysterectomy: No Joint Replacement: No Oral Surgery: No Pacemaker: No Thoracic Surgery: No Other Surgery: Yes (APPENDECTOMY, liver bx) Social History Alcohol Use: No Tobacco Use: Yes (VAPOR) Substance Use: No Allergies-Medications (Allergen,Severity, Reaction): Coded Allergies: No Known Allergies (Unverified , 01/15/18) Reported Meds & Prescriptions Reported Meds & Active Scripts Active Zantac 150 Maximum Strength (Ranitidine HCl) 150 Mg Tab 150 Mg PO BID 10 Days Gaviscon Extra Strength R Liq (Aluminum Hydroxide-Mag Carb Liq) 508-475 Mg/10 Ml Susp 10-20 Ml PO QID PRN 14 Days Maximum 80 mL/24 hrs. Percocet (Oxycodone-Acetaminophen) 5-325 mg Tab 1-2 Tab PO Q6H PRN Amoxicillin 500 Mg Tab 1,000 Mg PO BID 14 Days Clarithromycin 500 Mg Tab 500 Mg PO BID 14 Days Pantoprazole (Pantoprazole Sodium) 40 Mg Tab 40 Mg PO DAILY Physical Exam Narrative GENERAL: Thin female she does appear uncomfortable with her pain SKIN: Focused skin assessment warm/dry. HEAD: Atraumatic. Normocephalic. EYES: Pupils equal and round. No scleral icterus. No injection or drainage. ENT: No nasal bleeding or discharge. Mucous membranes pink and moist. NECK: Trachea midline. No JVD. CARDIOVASCULAR: Regular rate and rhythm. No murmur appreciated. RESPIRATORY: No accessory muscle use. Clear to auscultation. Breath sounds equal bilaterally. GASTROINTESTINAL: Abdomen soft, liver edge is firm. There is some diffuse lower abdominal tenderness without guarding or rigidity MUSCULOSKELETAL: No obvious deformities. No clubbing. No cyanosis. No edema. NEUROLOGICAL: Awake and alert. No obvious cranial nerve deficits. Motor grossly within normal limits. Normal speech. PSYCHIATRIC: Appropriate mood and affect; insight and judgment normal. Data Data Last Documented VS Vital Signs Date Time Temp Pulse Resp B/P (MAP) Pulse Ox O2 Delivery O2 Flow Rate FiO2 01/15/18 16:08 80 16 99/54 (69) 100 01/15/18 15:21 Room Air 01/15/18 11:46 98.7 Orders Orders Complete Blood Count With Diff (01/15/18 13:20) Comprehensive Metabolic Panel (01/15/18 13:20) Ct Abd/Pel W Iv Contrast(Rout) (01/15/18 13:20) Sodium Chlor 0.9% 1000 Ml Inj (Ns 1000 M (01/15/18 13:30) Ondansetron Inj (Zofran Inj) (01/15/18 13:30) Hydromorphone Pf Inj (Dilaudid Pf Inj) (01/15/18 13:30) Iohexol 350 Inj (Omnipaque 350 Inj) (01/15/18 14:34) Al-Mag Hy-Si 40-40-4 Mg/Ml Liq (Mag-Al P (01/15/18 15:45) Lidocaine 2% Viscous (Xylocaine 2% Visco (01/15/18 15:45) Ed Discharge Order (01/15/18 15:45) Labs Laboratory Tests Test 01/15/18 13:40 White Blood Count 10.3 TH/MM3 Red Blood Count 3.82 MIL/MM3 Hemoglobin 8.5 GM/DL Hematocrit 28.0 % Mean Corpuscular Volume 73.3 FL Mean Corpuscular Hemoglobin 22.3 PG Mean Corpuscular Hemoglobin Concent 30.5 % Red Cell Distribution Width 19.8 % Platelet Count 544 TH/MM3 Mean Platelet Volume 7.7 FL Neutrophils (%) (Auto) 70.7 % Lymphocytes (%) (Auto) 19.1 % Monocytes (%) (Auto) 8.9 % Eosinophils (%) (Auto) 0.5 % Basophils (%) (Auto) 0.8 % Neutrophils # (Auto) 7.2 TH/MM3 Lymphocytes # (Auto) 2.0 TH/MM3 Monocytes # (Auto) 0.9 TH/MM3 Eosinophils # (Auto) 0.1 TH/MM3 Basophils # (Auto) 0.1 TH/MM3 CBC Comment AUTO DIFF Differential Comment AUTO DIFF CONFIRMED Platelet Estimate HIGH Platelet Morphology Comment NORMAL Stomatocytes 2+ Blood Urea Nitrogen 11 MG/DL Creatinine 0.72 MG/DL Random Glucose 97 MG/DL Total Protein 7.2 GM/DL Albumin 3.5 GM/DL Calcium Level 8.7 MG/DL Alkaline Phosphatase 119 U/L Aspartate Amino Transf (AST/SGOT) 19 U/L Alanine Aminotransferase (ALT/SGPT) 23 U/L Total Bilirubin 0.4 MG/DL Sodium Level 136 MEQ/L Potassium Level 3.7 MEQ/L Chloride Level 102 MEQ/L Carbon Dioxide Level 28.1 MEQ/L Anion Gap 6 MEQ/L Estimat Glomerular Filtration Rate 83 ML/MIN [facility] Medical Decision Making Medical Screen Exam Complete: Yes Emergency Medical Condition: Yes Medical Record Reviewed: Yes Differential Diagnosis Differential includes progressive colon cancer, bowel obstruction, diverticulitis Narrative Course lab Work and CT scan have been ordered and are pending. Disposition will be determined by oncoming physician Diagnosis Primary Impression: Colon cancer Scripts Ranitidine (Zantac 150 Maximum Strength) 150 Mg Tab 150 MG PO BID for 10 Days, #20 TAB Prov: Zeus Chavez MD 01/15/18 Aluminum Hydroxide-Mag Carb Liq (Gaviscon Extra Strength R Liq) 508-475 Mg/10 Ml Susp 10-20 ML PO QID Y for HEARTBURN for 14 Days, ML 0 Refills Maximum 80 mL/24 hrs. Prov: Zeus Chavez MD 01/15/18 Oxycodone-Acetaminophen (Percocet) 5-325 mg Tab 1-2 TAB PO Q6H Y for PAIN SCALE 6 TO 10, #15 TAB 0 Refills Prov: Zeus Chavez MD 01/15/18 Twin Morgan MD January 15, 2018 13:27
[2018-01-15] MEDS ORDERED: SODIUM CHLOR 0.9% 1000 ML INJ 1,000 ML IV ONE (13:30)
[2018-01-15] MEDS ORDERED: ONDANSETRON HCL 4 MG/2 ML VIAL IV PUSH ONE (13:30)
[2018-01-15] MEDS ORDERED: HYDROmorphone HCL PF 2 MG/ML VIAL IV PUSH ONE (13:30)
[2018-01-15 13:35] VITALS: BP 115/68; PULSE 82; RESP 16; O2SAT 98
[2018-01-15 13:58] VITALS: BP 110/70; PULSE 81; RESP 16; O2SAT 95
[2018-01-15 14:00] LABS: AUTOMATED NEUTROPHIL # 7.2 TH/MM3 (1.8-7.7); BASOPHIL # 0.1 TH/MM3 (0-0.2); BASOPHIL % 0.8 % (0.0-2.0); CHLORIDE 102 MEQ/L (98-107); EOSINOPHIL # 0.1 TH/MM3 (0-0.4); EOSINOPHIL % 0.5 % (0.0-4.0); HEMOGLOBIN 8.5 GM/DL (11.6-15.3); LYMPH % 19.1 % (9.0-44.0); MEAN CELL VOLUME 73.3 FL (80.0-100.0); MEAN CORPUSCULAR HEMOGLOBIN 22.3 PG (27.0-34.0); MEAN CORPUSCULAR HGB CONC 30.5 % (32.0-36.0); MEAN PLATELET VOLUME 7.7 FL (7.0-11.0); MONO % 8.9 % (0.0-8.0); MONOCYTE # 0.9 TH/MM3 (0-0.9); NEUT % 70.7 % (16.0-70.0); PLATELET COUNT 544 TH/MM3 (150-450); RED BLOOD COUNT 3.82 MIL/MM3 (4.00-5.30); RED CELL DISTRIBUTION WIDTH 19.8 % (11.6-17.2); SODIUM (NA) 136 MEQ/L (136-145); WHITE BLOOD COUNT 10.3 TH/MM3 (4.0-11.0)
[2018-01-15 14:03] LABS: CALCIUM 8.7 MG/DL (8.5-10.1)
[2018-01-15 14:04] LABS: ALBUMIN 3.5 GM/DL (3.4-5.0); BICARBONATE 28.1 MEQ/L (21.0-32.0); BLOOD UREA NITROGEN 11 MG/DL (7-18); GLUCOSE,RANDOM 97 MG/DL (74-106)
[2018-01-15 14:07] LABS: ALT (GPT) 23 U/L (10-53); AST (GOT) 19 U/L (15-37); CREATININE 0.72 MG/DL (0.50-1.00); GLOMERULAR FILTRATION RATE 83 ML/MIN (>89)
[2018-01-15 14:08] LABS: TOTAL BILIRUBIN ADULT 0.4 MG/DL (0.2-1.0)
[2018-01-15 14:09] LABS: TOTAL PROTEIN 7.2 GM/DL (6.4-8.2)
[2018-01-15 14:10] LABS: ALKALINE PHOSPHATASE 119 U/L (45-117)
[2018-01-15] MEDS ORDERED: IOHEXOL 350 MG/ML 10 ML VIAL (for RAD DIAG) IVCONTRAST ONE (14:34)
[2018-01-15 15:17] LABS: STOMATOCYTES 2+ (NORMAL)
[2018-01-15 15:21] VITALS: BP 100/60; PULSE 76; RESP 16; O2SAT 98
--- NOTE | 2018-01-15 15:22 | RADRPT ---
EXAM DATE/TIME: 01/15/2018 14:27 [facility] COMPARISON: No previous studies available for comparison. INDICATIONS : Diffuse abdominal pain. IV CONTRAST: 85 cc Omnipaque 350 (iohexol) IV ORAL CONTRAST: No oral contrast ingested. RADIATION DOSE: 5.31 CTDIvol (mGy) MEDICAL HISTORY : Carcinoma, colon. Metastatic, liver. SURGICAL HISTORY : Appendectomy. ENCOUNTER: Initial ACUITY: 1 day PAIN SCALE: 3/10 LOCATION: pelvis abdomen TECHNIQUE: Volumetric scanning of the abdomen and pelvis was performed. Using automated exposure control and ad justment of the mA and/or kV according to patient size, radiation dose was kept as low as reasonably achievable to obtain optimal diagnostic quality images. DICOM format image data is available electro nically for review and comparison. FINDINGS: LOWER LUNGS: The visualized lower lungs are clear. LIVER: There is a 3.6 cm low density in the dome of the right lobe of the liver. Slightly smaller satellite lesion is present more laterally in a similar level. Elsewhere, small well circumscribed low densitie s are probably cysts however too small to characterize. Vague low density adjacent to the falciform l igament in the quadrate lobe is likely fatty infiltration. There is no evidence of biliary ductal dil atation. SPLEEN: Normal size without lesion. PANCREAS: Within normal limits. KIDNEYS: Normal in size and shape. There is no mass, stone or hydronephrosis. ADRENAL GLANDS: Within normal limits. VASCULAR: There is no aortic aneurysm. BOWEL/MESENTERY: There is a process in the right lower quadrant with hazy induration medial to the cecum and adjacent to the appendix. A small low density focus is present with several adjacent enhancing lymph nodes whi ch measure 1-1.5 cm in size. A retroperitoneal node at the aortic bifurcation level measures about 15 mm in size. The bowel is elsewhere are notable for occasional diverticula. No evidence of abnormal d ilatation. Minimal free pelvic fluid is present. ABDOMINAL WALL: Within normal limits. RETROPERITONEUM: See above BLADDER: No wall thickening or mass. REPRODUCTIVE: Within normal limits. INGUINAL: There is no lymphadenopathy or hernia. MUSCULOSKELETAL: Within normal limits for patient age. CONCLUSION: Pathologic process in the right lower quadrant may be inflammatory, however neoplasm would be an kamran tional consideration. The exact origin of the process is not clearly determined. Suspicious mass density in the dome of the right lobe of the liver could similarly be neoplastic or i nfectious in etiology. Correlation recommended. Cameron Malhotra MD on January 15, 2018 at 15:10 Board Certified Radiologist. This report was verified electronically.
[2018-01-15] MEDS ORDERED: LIDOCAINE VISCOUS 2% SOLN 15 ML UDC PO ONE (15:45)
[2018-01-15] MEDS ORDERED: ALUMINUM/MAGNESIUM/SIMETH 30 ML CUP PO ONE (15:45)
[2018-01-15] MEDS ORDERED: GAVISUS2 PO (15:48)
[2018-01-15] MEDS ORDERED: PERC5TAB12 PO (15:48)
[2018-01-15] MEDS ORDERED: ZANTTAB PO (15:48)
--- NOTE | 2018-01-15 15:49 | PD ---
Data Data Last Documented VS Vital Signs Date Time Temp Pulse Resp B/P (MAP) Pulse Ox O2 Delivery O2 Flow Rate FiO2 01/15/18 15:21 76 16 100/60 (73) 98 Room Air 01/15/18 11:46 98.7 Orders Orders Complete Blood Count With Diff (01/15/18 13:20) Comprehensive Metabolic Panel (01/15/18 13:20) Ct Abd/Pel W Iv Contrast(Rout) (01/15/18 13:20) Sodium Chlor 0.9% 1000 Ml Inj (Ns 1000 M (01/15/18 13:30) Ondansetron Inj (Zofran Inj) (01/15/18 13:30) Hydromorphone Pf Inj (Dilaudid Pf Inj) (01/15/18 13:30) Iohexol 350 Inj (Omnipaque 350 Inj) (01/15/18 14:34) Al-Mag Hy-Si 40-40-4 Mg/Ml Liq (Mag-Al P (01/15/18 15:45) Lidocaine 2% Viscous (Xylocaine 2% Visco (01/15/18 15:45) Ed Discharge Order (01/15/18 15:45) Labs Laboratory Tests Test 01/15/18 13:40 White Blood Count 10.3 TH/MM3 Red Blood Count 3.82 MIL/MM3 Hemoglobin 8.5 GM/DL Hematocrit 28.0 % Mean Corpuscular Volume 73.3 FL Mean Corpuscular Hemoglobin 22.3 PG Mean Corpuscular Hemoglobin Concent 30.5 % Red Cell Distribution Width 19.8 % Platelet Count 544 TH/MM3 Mean Platelet Volume 7.7 FL Neutrophils (%) (Auto) 70.7 % Lymphocytes (%) (Auto) 19.1 % Monocytes (%) (Auto) 8.9 % Eosinophils (%) (Auto) 0.5 % Basophils (%) (Auto) 0.8 % Neutrophils # (Auto) 7.2 TH/MM3 Lymphocytes # (Auto) 2.0 TH/MM3 Monocytes # (Auto) 0.9 TH/MM3 Eosinophils # (Auto) 0.1 TH/MM3 Basophils # (Auto) 0.1 TH/MM3 CBC Comment AUTO DIFF Differential Comment AUTO DIFF CONFIRMED Platelet Estimate HIGH Platelet Morphology Comment NORMAL Stomatocytes 2+ Blood Urea Nitrogen 11 MG/DL Creatinine 0.72 MG/DL Random Glucose 97 MG/DL Total Protein 7.2 GM/DL Albumin 3.5 GM/DL Calcium Level 8.7 MG/DL Alkaline Phosphatase 119 U/L Aspartate Amino Transf (AST/SGOT) 19 U/L Alanine Aminotransferase (ALT/SGPT) 23 U/L Total Bilirubin 0.4 MG/DL Sodium Level 136 MEQ/L Potassium Level 3.7 MEQ/L Chloride Level 102 MEQ/L Carbon Dioxide Level 28.1 MEQ/L Anion Gap 6 MEQ/L Estimat Glomerular Filtration Rate 83 ML/MIN [facility] Medical Record Reviewed: Yes Supervised Visit with ZACHERY: No Narrative Course Please refer to the [place] provider's notes. CT scan shows inflammation in the right lower quadrant. The patient had a appendectomy in the remote past. We know that she has adenocarcinoma of the colon with metastatic disease to the liver. She has follow-up with Dr. Ragland of oncology. She also at the time of reassessment notes possible GI ulcer disease which we can treat aggressively. The patient also has malignant pain and we will treat that with Percocet in keeping with a [place] house bill and the [facility] institutional opioid pain management policy not to mention standard pain management guidelines. Return precautions discussed. Patient agreeable to plan. Diagnosis Primary Impression: Adenocarcinoma of colon metastatic to liver Additional Impressions: Adenocarcinoma of colon Gastritis Qualified Codes: K29.70 - Gastritis, unspecified, without bleeding Referrals: Desire Ragland MD 3 days Med/Other Pt SpecificInfo: Prescription(s) given Scripts Ranitidine (Zantac 150 Maximum Strength) 150 Mg Tab 150 MG PO BID for 10 Days, #20 TAB Prov: Zeus Chavez MD 01/15/18 Aluminum Hydroxide-Mag Carb Liq (Gaviscon Extra Strength R Liq) 508-475 Mg/10 Ml Susp 10-20 ML PO QID Y for HEARTBURN for 14 Days, ML 0 Refills Maximum 80 mL/24 hrs. Prov: Zeus Chavez MD 01/15/18 Oxycodone-Acetaminophen (Percocet) 5-325 mg Tab 1-2 TAB PO Q6H Y for PAIN SCALE 6 TO 10, #15 TAB 0 Refills Prov: Zeus Chavez MD 01/15/18 Disposition: 01 DISCHARGE HOME Condition: Stable Zeus Chavez MD January 15, 2018 15:49
[2018-01-15 16:08] VITALS: BP 99/54
== END 2018-01-15 16:11 | disposition home or self-care (01) ==
LOC: PHED 11:40
DX: C18.9 Malignant neoplasm of colon, unspecified (principal); C78.7 Secondary malignant neoplasm of liver and intrahepatic bile duct; D64.9 Anemia, unspecified; K21.9 Gastro-esophageal reflux disease without esophagitis
CPT/HCPCS: 74177; 80053; 85025; 96361; 96374; 96375; 99285; J1170; J2405; J7030; Q9967

== ENCOUNTER 2018-01-19 06:10 | Day surgery (SDC) | payer BC ==
[~2018-01-19] VITALS: Ht 162.6 cm; Wt 55.4 kg
[~2018-01-19 06:10] MED LIST changes: +GAVISUS2 PO; +PERC5TAB12 PO; +ZANTTAB PO
[2018-01-19 06:56] VITALS: BP 101/72; PULSE 84; RESP 20; TEMP 97.6; O2SAT 99
[2018-01-19] MEDS ORDERED: ceFAZolin 2 GM PREMIX 50 ML - implanted port/tunneled catheter insertion IV SCH (07:00)
[2018-01-19] MEDS ORDERED: POVIDONE IODINE 5% (ANTISEPSIS KIT) 4 APPLICATIONS EACH NARE SCH (07:00)
[2018-01-19] MEDS ORDERED: VANCOMYCIN 1 GM/200 ML PREMIX ON-CALL IV SCH (07:00)
[2018-01-19] MEDS ORDERED: CHLORHEXIDINE GLUCONATE 2 % 1 PACK (2 CLOTHS) TOPICAL SCH (07:00)
[2018-01-19] MEDS ORDERED: SODIUM CHLORIDE 0.9% 1000 ML IV SCH (07:00)
[2018-01-19 07:31] LABS: INTERNATIONAL NORMALIZED RATIO 0.9 RATIO; PROTHROMBIN TIME - PATIENT 9.2 SEC (9.8-11.6)
[2018-01-19] MEDS ORDERED: fentaNYL CITRATE 250 MCG/5 ML AMP ONE (07:35)
[2018-01-19] MEDS ORDERED: MIDAZOLAM HCL 5 MG/5 ML VIAL ONE (07:35)
[2018-01-19] MEDS ORDERED: LIDOCAINE 1%/EPINEPHrine 1:100,000 SOLN 30 ML VIAL ONE (07:58)
--- NOTE | 2018-01-19 08:33 | PD.RAD ---
Post Procedure Progress Note Pre Procedure Diagnosis: (1) Liver mass Post Procedure Diagnosis: (1) Liver mass Procedure Date: January 19, 2018 Supervising Radiologist: Neto Armas Proceduralist/Assist: RT Gavino(R), RT Nadine(R)(CV) Anesthesia: Conscious Sedation Plan of Activity Patient to Unit: ROPU Patient Condition: Good See PACS Report for procedural detail/treatment Neto Armas MD January 19, 2018 08:33
[2018-01-19 08:35] VITALS: BP 103/60; PULSE 95; RESP 18; TEMP 97.6; O2SAT 92
[2018-01-19 08:50] VITALS: BP 93/58; PULSE 81; RESP 18; O2SAT 96
[2018-01-19 09:20] VITALS: BP 96/56; PULSE 75; RESP 18; O2SAT 99
[2018-01-19 09:50] VITALS: BP 93/58; PULSE 85; RESP 18; O2SAT 97
[2018-01-19 10:20] VITALS: BP 107/68; PULSE 79; RESP 18; O2SAT 96
--- NOTE | 2018-01-19 14:54 | RADRPT ---
EXAM DATE: 01/19/2018 2:30 PM EDT AGE/SEX: 58 years / Female INDICATIONS: Patient with recent diagnosis of colon cancer. CLINICAL DATA: This is the patient's initial encounter. Patient reports that signs and symptoms have been present for 3 weeks and indicates a pain score of 0/10. MEDICAL/SURGICAL HISTORY: Carcinoma, colon. liver massanemiaGERDgi bleed smoker Appendectomy. COMPARISON: No prior [place] exams available for comparison. FLUORO TIME (min): 0.3 IMAGE SERIES: 1 SEDATION TIME (min): 30 MEDICATION(S): 3 mg midazolam (Versed) IV 225 mcg fentanyl (Sublimaze) IV Vancomycin within 2 hrs of procedure, Ancef (or alternative) within 1 hr of procedure. DEVICE(S): Right 8 FR POWER PORT . . PROCEDURE : 1. Continuous pulse oximetry and EKG monitoring. 2. Intravenous conscious sedation. 3. Ultrasound guidance for venous access. 4. Fluoroscopic guided implantable central venous port placement. The patient was placed supine. The neck was prepped in sterile fashion. Full sterile technique was u sed, including cap, mask, sterile gloves and gown, and a large sterile sheet. Hand hygiene and 2% ch lorhexidine Betadine was utilized per protocol for cutaneous antisepsis with appropriate dry time for site. Sterile gel and sterile probe cover were utilized for ultrasound guidance. The skin and sub cutaneous tissues were infiltrated with local anesthetic solution. Under direct ultrasound guidance, central venous access was accomplished in the targeted vessel. The ultrasound images depicting access guidance were stored and saved to PACS for permanent record. A s ubcutaneous pocket was created using blunt dissection. The port was introduced to the pocket. The c atheter tubing was fed through a subcutaneous tunnel to the venotomy site. The catheter tubing was c ut to a suitable length and then was introduced through a valved Peel-Away sheath and positioned with catheter tubing tip at the cavo-atrial junction level. The pocket incision was closed with subcutic ular Vicryl suture. Steri-Strips were applied. The port was flushed and locked with heparin solutio n per protocol. Sterile dressing was applied to the site. The patient tolerated the procedure well. Conscious sedation was performed with the prescribed dosages and duration as above in the presence of an independent trained radiology nurse to assist in the monitoring of the patient. EKG and oximetry remained stable throughout the procedure. The patient tolerated the procedure well and there were no complications. The patient was sent to post anesthesia recovery in stable condition. CONCLUSION: 1. Uncomplicated ultrasound and fluoroscopic guided implanted central venous port catheter placement as described in detail above. An 8 Pashto Power port was placed. Electronically signed by: Neto Armas MD 01/19/2018 2:53 PM EDT
== END 2018-01-19 10:35 | disposition home or self-care (01) ==
LOC: HROP 06:10 → HRIP 06:14 → HROP 10:35
PROVIDERS: ATTEND Internal Medicine
DX: R16.0 Hepatomegaly, not elsewhere classified (principal); C18.9 Malignant neoplasm of colon, unspecified; F17.200 Nicotine dependence, unspecified, uncomplicated
CPT/HCPCS: 36561; 76937; 77001; 85610; 85730; 99152; 99153; C1788; J0690; J1642; J2250; J3010; J3370; J7030

== ENCOUNTER 2018-05-09 11:09 | Inpatient (IN) ==
[2018-05-09] MEDS ORDERED: Bupivacaine/Epinephrine 0.5% Inj 50 ML Vial ONE (11:53)
[2018-05-09 12:11] LABS: Baso % (Auto) 0.4 % (0.0-2.0); Eos # (Auto) 0.1 th/mm3 (0.0-0.4); Eos % (Auto) 1.6 % (0.0-4.0); Hematocrit 33.2 % (35.0-46.0); Hemoglobin 10.7 gm/dL (11.6-15.3); Lymph # (Auto) 1.6 th/mm3 (1.0-4.8); Lymph % (Auto) 45.5 % (9.0-44.0); Mean Corpuscular HGB Conc 32.2 % (32.0-36.0); Mean Corpuscular Hemoglobin 26.6 pg (27.0-34.0); Mean Corpuscular Volume 82.9 fL (80.0-100.0); Mean Platelet Volume 7.8 fL (7.0-11.0); Mono # (Auto) 0.7 th/mm3 (0.0-0.9); Mono % (Auto) 18.4 % (0.0-8.0); Neut # (Auto) 1.2 th/mm3 (1.8-7.7); Neut % (Auto) 34.1 % (16.0-70.0); Platelet Count 198 th/mm3 (150-450); Red Blood Count 4.01 mil/mm3 (4.00-5.30); Red Cell Distribution Width 24.8 % (11.6-17.2); White Blood Count 3.6 th/mm3 (4.0-11.0)
[2018-05-09] MEDS ORDERED: Chlorhexidine Gluconate 2% 1 Pack (2 Cloths) TOPICAL SCH (12:27)
[2018-05-09] MEDS ORDERED: Metoprolol Tartrate 25 MG Tablet PO SCH (12:27)
[2018-05-09] MEDS ORDERED: Heparin Central Flush 100 UNIT/ML 5 ML Vial IV.FLUSH PRN ×2 (12:31)
[2018-05-09 12:46] LABS: Anion Gap 9 meq/L (5-15); Blood Urea Nitrogen 10 mg/dL (7-18); Calcium 8.4 mg/dL (8.5-10.1); Carbon Dioxide 28.5 meq/L (21.0-32.0); Chloride 107 meq/L (98-107); Glomerular Filtration Rate Greater Than 89 mL/min (>89); Glucose,Random 83 mg/dL (74-106); Potassium 3.6 meq/L (3.5-5.1); Sodium 144 meq/L (136-145)
[2018-05-09] MEDS ORDERED: Glycopyrrolate Inj 1 MG/5 ML Syringe IV.PUSH ONE (12:53)
[2018-05-09] MEDS ORDERED: Lidocaine PF 1% Inj 5 ML Syringe INFILTRATN ONE (12:53)
[2018-05-09] MEDS ORDERED: Neostigmine Inj 5 MG/5 ML Syringe IV.PUSH ONE (12:53)
[2018-05-09] MEDS ORDERED: Phenylephrine/NS 1000 MCG/10ML Syringe IV.PUSH ONE (12:53)
[2018-05-09] MEDS ORDERED: Sodium Chlor 0.9% Inj 500 ML IV.SIG SCH (13:00)
[2018-05-09] MEDS ORDERED: fentaNYL Citrate Inj 100 MCG/2 ML Ampul ONE ×2 (15:21→15:22)
[2018-05-09] MEDS ORDERED: Naloxone Inj 0.4 MG/ML Vial IV.PUSH PRN ×2 (15:24→15:29)
[2018-05-09] MEDS ORDERED: Post-op Orders (for Pharmacy) OTHER ONE (15:24)
[2018-05-09] MEDS ORDERED: *Ondansetron Inj 4 MG/2 ML Vial PERIprocedural Use ONLY ONE (15:33)
[2018-05-09] MEDS: Morphine Inj 30 MG/30 ML PCA.VIAL PCA PRN (15:35)
[2018-05-09] MEDS: Sod Chloride 0.9% Inj 1,000 ML IV.CONT SCH (15:35)
[2018-05-09] MEDS ORDERED: Morphine Inj 30 MG/30 ML PCA.VIAL PCA ONE (15:57)
[2018-05-09] MEDS ORDERED: *morphine SULFATE 4 MG/ML PERIprocedure ONLY ONE (16:11)
[2018-05-09] MEDS: Pantoprazole Inj 40 MG Vial IV.PUSH SCH (18:45)
--- NOTE | 2018-05-09 20:35 | MP ---
cc: Jess Ahn MD DATE OF OPERATION: 05/09/2018 PREOPERATIVE DIAGNOSIS: Carcinoma of the right colon with liver metastasis. POSTOPERATIVE DIAGNOSIS: Carcinoma of the right colon with liver metastasis. PROCEDURE PERFORMED: Extended right colectomy with primary anastomosis and omentectomy. SURGEON: Jess Ahn MD ANESTHESIA: General. ESTIMATED BLOOD LOSS: 150 mL. PROCEDURE: The patient was prepped and draped in the usual fashion mid abdominal incision made, abdomen entered. Bookwalter retractor was positioned. Abdomen was explored in quadrants. Large bowel is examined and there is a mass in the cecum to which some omentum is stuck. The omentum is sort of plastered to the right colon. The ascending and transverse colon appeared to be normal. Descending colon is normal and in the sigmoid, there are some diverticula, but otherwise bowel appears to be fine. The small bowel was run and appears to be normal. Spleen is small and normal. The liver is palpated. Left lobe appears to be fine. On the right side, the patient does have firmness in the middle of the right lobe, but this cannot be reached from outside; the lesion known to be about 3 cm deep into the liver parenchyma. No other lesions; however, are noted either in the liver or peritoneal cavity. The stomach is normal. NG tube is in position. The pancreas appears to be fine on exam and palpation. Once anatomy was ascertained, the point of proximal transection was chosen and here, the ileum is transected about 4 inches from the ileocecal valve with a PRIYA stapler. Mesoileum is now serially clamped, divided and ligated with 2-0 Vicryl stick ties and this was carried out to the mesocolon. The right colon was then retracted medially. The white line of Toldt is incised and colon is mobilized up. The duodenum is swept down and this is freed up all the way up. The omentum was clamped, divided, and ligated and taken en leann with the transverse colon and the right colon to which it stuck. The mesocolon is serially clamped with Abi clamps, going all the way down, getting large amounts of mesentery as far as I could reach. Serially, the mesocolon was clamped using Abi clamps, divided, ligated with 0 Vicryl stick ties proximally and silks distally. This was carried all through the transverse colon. A point of transection in the transverse colon is now chosen. A right colic artery will be part of this specimen. Arborization of the middle colic artery was chosen as the point of transection. The colon is now transected with the PRIYA stapler and then the rest of the mesocolon is taken together with omentum and specimen removed. The area irrigated with copious amounts of saline. Meticulous hemostasis obtained and then a [id number], ileocolic anastomosis was created using PRIYA stapler, closing the remaining opening with TA60. Additional layer of 3-0 silks was placed in the form of Lembert seromuscular muscular stitches with pop-offs and then the crotch of the anastomosis was reinforced with stitches. The mesocolon was now closed with interrupted 2-0 Vicryl and, once more, small and large bowel are run; no other abnormalities are found. The remnant of the left side of omentum is now placed over the anastomosis and tacked down. The whole abdomen irrigated with 3 liters of warm saline, which is suctioned off and then abdomen is closed with #1 PDS loop and ayala. The patient tolerated the procedure well. MD GLADYS Terry/lc/do , 05:15 PM , 05:24 PM
[2018-05-09] MEDS: ceFAZolin Inj 1,000 MG in Sodium Chlor 0.9% Inj 100 ML IV.SIG SCH (22:58)
[2018-05-10 06:40] LABS: Baso % (Auto) 0.1 % (0.0-2.0); Hematocrit 30.4 % (35.0-46.0); Hemoglobin 9.7 gm/dL (11.6-15.3); Lymph # (Auto) 1.1 th/mm3 (1.0-4.8); Lymph % (Auto) 11.3 % (9.0-44.0); Mean Corpuscular HGB Conc 31.9 % (32.0-36.0); Mean Corpuscular Hemoglobin 26.6 pg (27.0-34.0); Mean Corpuscular Volume 83.4 fL (80.0-100.0); Mean Platelet Volume 7.8 fL (7.0-11.0); Mono # (Auto) 1.7 th/mm3 (0.0-0.9); Mono % (Auto) 16.9 % (0.0-8.0); Neut # (Auto) 7.1 th/mm3 (1.8-7.7); Neut % (Auto) 71.7 % (16.0-70.0); Platelet Count 214 th/mm3 (150-450); Red Blood Count 3.65 mil/mm3 (4.00-5.30); Red Cell Distribution Width 24.4 % (11.6-17.2)
[2018-05-10 07:19] LABS: Anion Gap 7 meq/L (5-15); Blood Urea Nitrogen 8 mg/dL (7-18); Calcium 7.9 mg/dL (8.5-10.1); Carbon Dioxide 26.6 meq/L (21.0-32.0); Chloride 107 meq/L (98-107); Glomerular Filtration Rate Greater Than 89 mL/min (>89); Glucose,Random 110 mg/dL (74-106); Potassium 4.4 meq/L (3.5-5.1); Sodium 141 meq/L (136-145)
[2018-05-10] MEDS: Morphine Inj 30 MG/30 ML PCA.VIAL PCA PRN (07:25)
[2018-05-10] MEDS: ceFAZolin Inj 1,000 MG in Sodium Chlor 0.9% Inj 100 ML IV.SIG SCH ×2 (07:28→14:09)
[2018-05-10] MEDS: Sod Chloride 0.9% Inj 1,000 ML IV.CONT SCH ×2 (07:29→14:10)
--- NOTE | 2018-05-10 14:46 | P.PNVS ---
Subjective Subjective/Hospital Course: 58-year-old female with a right colon cancer and isolated liver metastasis of the right hepatic lobe underwent successful right colectomy with primary anastomosis Incisions clean and dry and abdomen is soft with few bowel sounds NG tube drainage was minimal and NG tube was not working for it was clotted off so this is been removed Plan Out of bed keep n.p.o. Transfer to floor Consult interventional radiology for thermal ablation of the right hepatic lobe tumor. Patient can have this thermal ablation either as an inpatient or an outpatient but she will be in the hospital probably till Monday or so Consult oncology Objective Vital Signs / I&O: Vital Signs 05/09/18 15:03 05/09/18 15:15 05/09/18 15:30 Temperature 97.6 F Pulse Rate 92 H 92 H 92 H Respiratory Rate 16 16 16 Blood Pressure 167/81 H 130/72 126/73 Pulse Oximetry 97 100 100 05/09/18 15:45 05/09/18 16:00 05/09/18 16:15 Temperature Pulse Rate 66 65 67 Respiratory Rate 17 17 18 Blood Pressure 131/65 135/75 129/73 Pulse Oximetry 100 100 100 05/09/18 16:45 05/09/18 19:00 05/09/18 20:00 Temperature 98.2 F 97.6 F 97.6 F Pulse Rate 68 70 70 Respiratory Rate 16 13 13 Blood Pressure 131/69 137/75 137/77 Pulse Oximetry 100 100 100 05/09/18 21:00 05/09/18 22:00 05/09/18 22:11 Temperature Pulse Rate 73 76 77 Respiratory Rate 12 18 16 Blood Pressure 137/75 133/79 Pulse Oximetry 100 100 100 05/09/18 23:00 05/10/18 00:00 05/10/18 04:00 Temperature 97.8 F 98.0 F Pulse Rate 70 76 80 Respiratory Rate 10 L 12 20 Blood Pressure 126/77 119/71 95/59 L Pulse Oximetry 100 97 05/10/18 08:00 05/10/18 11:15 05/10/18 12:00 Temperature 98.2 F 98.4 F Pulse Rate 78 77 Respiratory Rate 18 12 11 L Blood Pressure 98/57 L 98/53 L Pulse Oximetry 98 96 Intake & Output 05/09/18 05/10/18 05/10/18 18:59 06:59 18:59 Intake Total 1800 / 1800 700 / 700 2099 Output Total 555 / 555 150 / 150 Balance 1245 / 1245 550 / 550 2099 Weight 58.967 kg 66 kg Intake: IV 100 / 100 200 / 200 2099 / 2099 NS Inj 1,000 ML @ 100 mls/hr IV 1999 / 1999 .CONT .Q10H [facility] Rx#:[id number] Ancef Inj 1,000 MG In NS Inj 100 / 100 100 / 100 100 ML @ 200 mls/hr IV.SIG Q8H [facility] Rx#:[id number] Flagyl 500 MG Inj 100 ML @ 200 100 / 100 100 / 100 mls/hr IV.SIG Q8H [facility] Rx#: [id number] Anesthesia Amount 1700 / 1700 500 / 500 Output: Estimated Blood Loss 150 / 150 150 / 150 Urine Amount (Catheter) 405 / 405 Indwelling Urethral Catheter 405 / 405 Other: Weight On Admission 58.967 kg Laboratory Results - last 24 hr 05/10/18 05/10/18 05:47 05:47 WBC 10.0 D RBC 3.65 L Hgb 9.7 L Hct 30.4 L MCV 83.4 MCH 26.6 L MCHC 31.9 L RDW 24.4 H Plt Count 214 MPV 7.8 Neut % (Auto) 71.7 H Lymph % (Auto) 11.3 Caroline % (Auto) 16.9 H Eos % (Auto) 0.0 Baso % (Auto) 0.1 Neut # (Auto) 7.1 Lymph # (Auto) 1.1 Caroline # (Auto) 1.7 H Eos # (Auto) 0.0 Baso # (Auto) 0.0 WBC Differential . Differential Comment Auto diff final Sodium 141 Potassium 4.4 D Chloride 107 Carbon Dioxide 26.6 Anion Gap 7 BUN 8 Creatinine 0.59 Estimated GFR Greater than 89 Random Glucose 110 H Calcium 7.9 L
[2018-05-10] MEDS: Enoxaparin Inj 40 MG/0.4 ML Syringe SQ SCH (15:56)
[2018-05-10] MEDS: Pantoprazole Inj 40 MG Vial IV.PUSH SCH (15:56)
[2018-05-11] MEDS: Sod Chloride 0.9% Inj 1,000 ML IV.CONT SCH ×3 (06:19→17:57)
--- NOTE | 2018-05-11 07:48 | MB ---
cc: Desire Ragland MD DATE: 05/10/2018 CHIEF COMPLAINT: 1. Metastatic colon cancer. 2. Status post recent colectomy. HISTORY OF PRESENT ILLNESS: Ms. Shannon is a 58-year-old lady with no major medical problems who initially presented to the hospital in December of 2017 with severe anemia. At that time, her hemoglobin on admission was found to be 5.7. She underwent EGD and colonoscopy under the direction of Dr. Crews. EGD showed severe gastritis and biopsy from the antrum, mid esophagus, normal duodenum, no sign of active bleeding, incomplete colonoscopy due to poor prep. CT scan of the chest with no evidence of metastatic disease within the chest. CT scan of the abdomen and pelvis with a 3.6 cm low density lesion in the dome of the liver, slightly smaller. Satellite lesion is present more laterally in a similar level elsewhere. A small, well-circumscribed low densities are probably cysts; however, too small to characterize. Vague low density lesion adjacent to the falciform ligament is likely fatty infiltration. No evidence of biliary ductal dilatation. Biopsy revealed metastatic moderately differentiated adenocarcinoma consistent with colon primary. She has received chemotherapy with good response of disease. She initiated chemotherapy with FOLFOX, was given on 01/29/2018, 02/12/2018, 02/26/2018, and 03/12/2018. At this point in time, 5-FU and bevacizumab were given. 03/26/2018 FOLFOX was given. 03/29/2018 FOLFOX alone was given. She underwent colonoscopy under the direction of Dr. Babcock and yesterday she underwent right colectomy with primary anastomosis and omentectomy. PAST MEDICAL HISTORY: No significant past medical history. PAST SURGICAL HISTORY: No significant surgical history. FAMILY HISTORY: No family history of malignancy. SOCIAL HISTORY: No tobacco, alcohol, or illegal drug use. REVIEW OF SYSTEMS: The patient reports significant nausea since her surgery. PHYSICAL EXAMINATION: GENERAL: Well-developed, well-nourished lady, in no distress. HEENT: Head is normocephalic, atraumatic. Eyes: PERRLA, EOMI. No scleral icterus. No conjunctival pallor. CARDIOVASCULAR: Regular rate and rhythm. No murmurs. RESPIRATORY: Clear to auscultation bilaterally. ABDOMEN: Banding in place from recent surgery. NEUROLOGIC: Grossly nonfocal. PSYCHIATRIC: Appropriate mood and affect. ASSESSMENT AND PLAN: Metastatic colon cancer with plans to perform liver ablation next Monday. We will check labs to include CBC and CMP. Once recovered from surgery, we will plan to initiate treatment with chemotherapy. Desire Ragland MD MARQUES/sv , 06:50 AM , 06:56 AM MTDTejinder
[2018-05-11 10:42] LABS: Baso % (Auto) 0.3 % (0.0-2.0); Eos % (Auto) 0.1 % (0.0-4.0); Hematocrit 27.2 % (35.0-46.0); Hemoglobin 8.8 gm/dL (11.6-15.3); Lymph # (Auto) 1.2 th/mm3 (1.0-4.8); Lymph % (Auto) 14.6 % (9.0-44.0); Mean Corpuscular HGB Conc 32.3 % (32.0-36.0); Mean Corpuscular Hemoglobin 27.2 pg (27.0-34.0); Mean Corpuscular Volume 84.2 fL (80.0-100.0); Mean Platelet Volume 7.6 fL (7.0-11.0); Mono # (Auto) 0.9 th/mm3 (0.0-0.9); Mono % (Auto) 11.8 % (0.0-8.0); Neut # (Auto) 5.9 th/mm3 (1.8-7.7); Neut % (Auto) 73.2 % (16.0-70.0); Platelet Count 166 th/mm3 (150-450); Red Blood Count 3.23 mil/mm3 (4.00-5.30); Red Cell Distribution Width 23.7 % (11.6-17.2)
[2018-05-11 11:02] LABS: Albumin 2.5 g/dL (3.4-5.0); Anion Gap 8 meq/L (5-15); Aspartate Aminotransferase 41 U/L (15-37); Blood Urea Nitrogen 8 mg/dL (7-18); Calcium 8.2 mg/dL (8.5-10.1); Carbon Dioxide 28.2 meq/L (21.0-32.0); Chloride 105 meq/L (98-107); Glomerular Filtration Rate Greater Than 89 mL/min (>89); Glucose,Random 84 mg/dL (74-106); Sodium 141 meq/L (136-145)
[2018-05-11 11:03] LABS: Alanine Aminotransferase 33 U/L (10-53)
[2018-05-11 11:04] LABS: Alkaline Phosphatase 81 U/L (45-117); Total Protein 5.8 g/dL (6.4-8.2)
--- NOTE | 2018-05-11 13:46 | P.PNVS ---
Subjective Subjective/Hospital Course: 58-year-old female with a right colon cancer and isolated liver metastasis of the right hepatic lobe underwent successful right colectomy with primary anastomosis Incisions clean and dry and abdomen is soft with few bowel sounds NG tube drainage was minimal and NG tube was not working for it was clotted off so this is been removed Plan Out of bed keep n.p.o. Transfer to floor Consult interventional radiology for thermal ablation of the right hepatic lobe tumor. Patient can have this thermal ablation either as an inpatient or an outpatient but she will be in the hospital probably till Monday or so Consult oncology 05/11/2018 Patient doing well at this time Incision clean and dry Abdomen soft few bowel sounds and patient was nauseous yesterday so nasogastric tube had to be repositioned Plan Out of bed N.p.o. to patient decompresses or passes gas Objective Vital Signs / I&O: Vital Signs 05/10/18 16:00 05/10/18 20:00 05/10/18 20:05 Temperature 98.3 F 98.2 F Pulse Rate 79 75 Respiratory Rate 22 10 L Blood Pressure 106/61 114/58 L Pulse Oximetry 95 97 05/10/18 23:13 05/11/18 04:00 05/11/18 08:00 Temperature 98 F 98.5 F 98.4 F Pulse Rate 82 81 86 Respiratory Rate 20 18 16 Blood Pressure 111/58 L 111/56 L 107/61 Pulse Oximetry 95 95 95 05/11/18 12:00 Temperature 98.7 F Pulse Rate 81 Respiratory Rate 18 Blood Pressure 112/59 L Pulse Oximetry 95 Intake & Output 05/10/18 05/11/18 05/11/18 18:59 06:59 18:59 Intake Total 2300 / 2300 1000 / 1000 Output Total 550 / 550 75 / 75 900 / 900 Balance 1750 / 1750 925 / 925 -900 / -900 Weight 62.9 kg Intake: IV 2300 / 2300 1000 / 1000 NS Inj 1,000 ML @ 100 mls/hr IV 1999 / 1999 .CONT .Q10H [facility] Rx#:[id number] Ancef Inj 1,000 MG In NS Inj 200 / 200 100 ML @ 200 mls/hr IV.SIG Q8H [facility] Rx#:[id number] Flagyl 500 MG Inj 100 ML @ 200 100 / 100 mls/hr IV.SIG Q8H [facility] Rx#: [id number] Oral 0 / 0 Output: Urine 0 / 0 Urine Amount (Catheter) 550 / 550 900 / 900 Indwelling Urethral Catheter 550 / 550 900 / 900 Gastric Drainage 75 / 75 Right Nare Nasogastric Tube 75 / 75 Laboratory Results - last 24 hr 05/11/18 05/11/18 10:20 10:20 WBC 8.0 RBC 3.23 L Hgb 8.8 L Hct 27.2 L MCV 84.2 MCH 27.2 MCHC 32.3 RDW 23.7 H Plt Count 166 MPV 7.6 Neut % (Auto) 73.2 H Lymph % (Auto) 14.6 Rains % (Auto) 11.8 H Eos % (Auto) 0.1 Baso % (Auto) 0.3 Neut # (Auto) 5.9 Lymph # (Auto) 1.2 Rains # (Auto) 0.9 Eos # (Auto) 0.0 Baso # (Auto) 0.0 WBC Differential . Differential Comment Auto diff final Sodium 141 Potassium 4.0 Chloride 105 Carbon Dioxide 28.2 Anion Gap 8 BUN 8 Creatinine 0.56 Estimated GFR Greater than 89 Random Glucose 84 Calcium 8.2 L Total Bilirubin 0.4 AST 41 H ALT 33 Alkaline Phosphatase 81 Total Protein 5.8 L Albumin 2.5 L
[2018-05-11] MEDS: Enoxaparin Inj 40 MG/0.4 ML Syringe SQ SCH (15:26)
[2018-05-11] MEDS: Pantoprazole Inj 40 MG Vial IV.PUSH SCH (16:07)
[2018-05-11] MEDS: Morphine Inj 30 MG/30 ML PCA.VIAL PCA PRN (16:24)
--- NOTE | 2018-05-11 18:57 | P.PNONC ---
Subjective Interval history: Resting in bed. Reports no bowel movement or gas. Improved nausea. Walking in hallway today. Objective Vital Signs/Intake & Output: Vital Signs 05/10/18 20:00 05/10/18 20:05 05/10/18 23:13 Temperature 98.2 F 98 F Pulse Rate 75 82 Respiratory Rate 10 L 20 Blood Pressure 114/58 L 111/58 L Pulse Oximetry 97 95 05/11/18 04:00 05/11/18 08:00 05/11/18 12:00 Temperature 98.5 F 98.4 F 98.7 F Pulse Rate 81 86 81 Respiratory Rate 18 16 18 Blood Pressure 111/56 L 107/61 112/59 L Pulse Oximetry 95 95 95 05/11/18 16:00 05/11/18 17:11 Temperature 98.5 F Pulse Rate 73 Respiratory Rate 16 18 Blood Pressure 103/58 L Pulse Oximetry 96 Intake & Output 05/10/18 05/11/18 05/11/18 18:59 06:59 18:59 Intake Total 2300 / 2300 1000 / 1000 1000 / 1000 Output Total 550 / 550 75 / 75 1150 / 1150 Balance 1750 / 1750 925 / 925 -150 / -150 Weight 62.9 kg Intake: IV 2300 / 2300 1000 / 1000 1000 / 1000 NS Inj 1,000 ML @ 80 mls/hr IV. 1999 / 1999 1000 / 1000 CONT .[id number] [facility] Rx#:[id number] Ancef Inj 1,000 MG In NS Inj 200 / 200 100 ML @ 200 mls/hr IV.SIG Q8H [facility] Rx#:[id number] Flagyl 500 MG Inj 100 ML @ 200 100 / 100 mls/hr IV.SIG Q8H [facility] Rx#: [id number] Oral 0 / 0 Output: Urine 0 / 0 200 / 200 Urine Amount (Catheter) 550 / 550 900 / 900 Indwelling Urethral Catheter 550 / 550 900 / 900 Gastric Drainage 75 / 75 50 / 50 Right Nare Nasogastric Tube 75 / 75 50 / 50 Result Diagrams: 05/11/18 10:20 05/11/18 10:20 Laboratory Results: Laboratory Results - last 24 hr 05/11/18 05/11/18 10:20 10:20 WBC 8.0 RBC 3.23 L Hgb 8.8 L Hct 27.2 L MCV 84.2 MCH 27.2 MCHC 32.3 RDW 23.7 H Plt Count 166 MPV 7.6 Neut % (Auto) 73.2 H Lymph % (Auto) 14.6 [place] % (Auto) 11.8 H Eos % (Auto) 0.1 Baso % (Auto) 0.3 Neut # (Auto) 5.9 Lymph # (Auto) 1.2 [place] # (Auto) 0.9 Eos # (Auto) 0.0 Baso # (Auto) 0.0 WBC Differential . Differential Comment Auto diff final Sodium 141 Potassium 4.0 Chloride 105 Carbon Dioxide 28.2 Anion Gap 8 BUN 8 Creatinine 0.56 Estimated GFR Greater than 89 Random Glucose 84 Calcium 8.2 L Total Bilirubin 0.4 AST 41 H ALT 33 Alkaline Phosphatase 81 Total Protein 5.8 L Albumin 2.5 L Medications: Active Medications Generic Name Dose Route Start Last Admin Trade Name Freq PRN Reason Stop Dose Admin Albuterol 1 ampul 05/09/18 21:39 05/09/18 22:08 Duoneb Neb (Prn) INH 1 ampul Q4HR NEB PRN Administration SHORTNESS OF BREATH/WHEEZING Chlorhexidine Gluconate 3 pack 05/09/18 12:27 05/09/18 12:54 Chlorhexidine 2% Cloth TOPICAL 05/12/18 12:26 3 pack [facility] Administration Enoxaparin Sodium 40 mg 05/10/18 15:00 05/11/18 15:26 Lovenox Inj SQ 40 mg Q24H [facility] Administration Heparin Sodium (Porcine) 250 unit 05/09/18 12:31 05/09/18 15:58 Heparin Central Flush IV.FLUSH 250 unit PRN PRN Administration Flush Infusapot Sodium Chloride 1,000 mls @ 80 mls/hr 05/09/18 15:30 05/11/18 17:57 Ns Inj IV.CONT 80 mls/hr .[id number] [facility] Administration Morphine Sulfate 30 mg in 30 mls @ 0 mls/hr 05/09/18 15:29 05/11/18 16:24 Morphine Inj [employer]SE EXECUT[employer] 0 mls/hr UNSCH PRN Administration per CHIEF NURSE EXECUTIVE parameters 0 MG/HR Metoprolol Tartrate 25 mg 05/09/18 12:27 05/09/18 12:54 Lopressor PO 05/12/18 12:26 Not Given [employer] [employer] Ondansetron HCl 4 mg 05/09/18 15:24 05/11/18 17:12 Zofran Inj IV.PUSH 4 mg Q6H PRN Administration NAUSEA OR VOMITING Pantoprazole Sodium 40 mg 05/09/18 16:00 05/11/18 16:07 Protonix Inj IV.PUSH 40 mg Q24H [facility] Administration Objective Remarks: GENERAL: Well-nourished, well-developed patient. SKIN: Warm and dry. HEAD: Normocephalic. EYES: No scleral icterus. RESPIRATORY: No accessory muscle use. GASTROINTESTINAL: bandage in place NEUROLOGICAL: No obvious focal deficit. Awake, alert, and oriented x3. PSYCHIATRIC: Appropriate mood and affect; insight and judgment normal. Assessment/Plan - Plan 1. Stage IV colon adenocarcinma: s/p treatment with FOLFOX wtih good response. s/p removal of primary tumor. Plan for liver ablation.
[2018-05-12] MEDS: Sod Chloride 0.9% Inj 1,000 ML IV.CONT SCH ×2 (08:05→16:16)
--- NOTE | 2018-05-12 15:11 | P.PNGS ---
Subjective Patient reports: feels better Physical Exam Vital signs: Vital Signs 05/11/18 16:00 05/11/18 17:11 05/11/18 20:00 Temperature 98.5 F 98.7 F Pulse Rate 73 88 Respiratory Rate 16 18 18 Blood Pressure 103/58 L 111/59 L Pulse Oximetry 96 95 05/12/18 00:00 05/12/18 04:00 05/12/18 08:00 Temperature 98.4 F 98.8 F 98 F Pulse Rate 85 51 L 75 Respiratory Rate 18 18 18 Blood Pressure 119/58 L 109/67 116/70 Pulse Oximetry 95 97 96 05/12/18 12:00 Temperature 98.6 F Pulse Rate 81 Respiratory Rate 18 Blood Pressure 119/60 Pulse Oximetry 94 L Intake & Output 05/11/18 05/12/18 05/12/18 18:59 06:59 18:59 Intake Total 1000 / 1000 120 / 120 1000 / 1000 Output Total 1150 / 1150 300 / 300 Balance -150 / -150 -180 / -180 1000 / 1000 Weight 62.1 kg Intake: IV 1000 / 1000 1000 / 1000 NS Inj 1,000 ML @ 80 mls/hr IV. 1000 / 1000 1000 / 1000 CONT .[id number] [facility] Rx#:[id number] Oral 120 / 120 Output: Urine 200 / 200 300 / 300 Urine Amount (Catheter) 900 / 900 Indwelling Urethral Catheter 900 / 900 Gastric Drainage 50 / 50 Right Nare Nasogastric Tube 50 / 50 Other: Date of Last Bowel Movement 05/08/18 05/08/18 - Constitutional no acute distress - Routine Abdominal Exam Present: soft - Urinary Catheter Management Indwelling Urethral Catheter Cath placed during this visit: yes, but has since been removed by the nurse Reason for continuing: Decision to DC catheter Insertion date: 05/09/18 Insertion time: 13:00 Removal date: 05/11/18 Removal time: 13:29 Assessment and Plan - Plan stable postop postop ileus start sips of water
[2018-05-12] MEDS: Enoxaparin Inj 40 MG/0.4 ML Syringe SQ SCH (15:28)
[2018-05-12] MEDS: Pantoprazole Inj 40 MG Vial IV.PUSH SCH (15:28)
[2018-05-13] MEDS: Sod Chloride 0.9% Inj 1,000 ML IV.CONT SCH ×2 (00:12→16:48)
--- NOTE | 2018-05-13 14:23 | P.DIET ---
Nutritional Evaluation Screening comments: NPO ALERT X 4 DAYS. PLEASE CONSULT DIETITIAN NEEDED.
--- NOTE | 2018-05-13 14:34 | P.PNGS ---
Subjective Patient reports: no new complaints, feels better (passing gas) Physical Exam Vital signs: Vital Signs 05/12/18 16:00 05/12/18 20:00 05/13/18 00:00 Temperature 98.5 F 98 F 98.4 F Pulse Rate 73 67 75 Respiratory Rate 18 18 18 Blood Pressure 114/66 124/63 118/61 Pulse Oximetry 96 98 95 05/13/18 04:00 05/13/18 08:00 Temperature 98.1 F 98.3 F Pulse Rate 82 73 Respiratory Rate 16 20 Blood Pressure 116/63 123/58 L Pulse Oximetry 96 97 Intake & Output 05/12/18 05/13/18 05/13/18 18:59 06:59 18:59 Intake Total 3620 / 3620 480 / 480 Output Total 1999 / 1999 Balance 1620 / 1620 480 / 480 Intake: IV 3000 / 3000 NS Inj 1,000 ML @ 80 mls/hr IV. 3000 / 3000 CONT .[id number] [facility] Rx#:[id number] Oral 120 / 120 480 / 480 Anesthesia Amount 500 / 500 Output: Urine 900 / 900 Estimated Blood Loss 150 / 150 Urine Amount (Catheter) 900 / 900 Indwelling Urethral Catheter 900 / 900 Gastric Drainage 50 / 50 Right Nare Nasogastric Tube 50 / 50 Other: # Voids 2 Date of Last Bowel Movement 05/08/18 - Routine Abdominal Exam Present: soft - Urinary Catheter Management Indwelling Urethral Catheter Cath placed during this visit: yes, but has since been removed by the nurse Reason for continuing: Decision to DC catheter Insertion date: 05/09/18 Insertion time: 13:00 Removal date: 05/11/18 Removal time: 13:29 Assessment and Plan - Plan stable postop postop ileus resolving start clears dc collaborating supervising physician
[2018-05-13] MEDS ORDERED: Morphine Inj 4 MG/ML Vial IV.PUSH PRN (14:36)
[2018-05-13] MEDS: Enoxaparin Inj 40 MG/0.4 ML Syringe SQ SCH (15:21)
[2018-05-13] MEDS: Pantoprazole Inj 40 MG Vial IV.PUSH SCH (15:22)
[2018-05-14] MEDS: Sod Chloride 0.9% Inj 1,000 ML IV.CONT SCH ×2 (00:28→08:11)
--- NOTE | 2018-05-14 11:17 | P.PNVS ---
Subjective Subjective/Hospital Course: 58-year-old female with a right colon cancer and isolated liver metastasis of the right hepatic lobe underwent successful right colectomy with primary anastomosis Incisions clean and dry and abdomen is soft with few bowel sounds NG tube drainage was minimal and NG tube was not working for it was clotted off so this is been removed Plan Out of bed keep n.p.o. Transfer to floor Consult interventional radiology for thermal ablation of the right hepatic lobe tumor. Patient can have this thermal ablation either as an inpatient or an outpatient but she will be in the hospital probably till Monday or so Consult oncology 05/11/2018 Patient doing well at this time Incision clean and dry Abdomen soft few bowel sounds and patient was nauseous yesterday so nasogastric tube had to be repositioned Plan Out of bed N.p.o. to patient decompresses or passes gas 05/14/2018 Patient doing very well Abdomen soft active bowel sounds, patient passing lots of gas tolerating p.o. diet well Incision is clean and dry Plan Advance to regular diet May shower get incision wet Discharge patient today Pathology results have returned and this patient has local tumor penetrating through muscularis and has positive lymph nodes on its own making it a C2 lesion however patient also has liver metastasis, which is of course stage IV tumor regardless the lymph node involvement Patient will have thermal ablation of the liver tomorrow an outpatient basis Objective Vital Signs / I&O: Vital Signs 05/13/18 12:00 05/13/18 16:00 05/13/18 20:00 Temperature 98.1 F 97.9 F 97.9 F Pulse Rate 63 66 70 Respiratory Rate 18 16 18 Blood Pressure 132/69 148/68 H 139/77 Pulse Oximetry 98 94 L 05/13/18 23:46 05/14/18 08:00 Temperature 98.1 F 97.7 F Pulse Rate 75 64 Respiratory Rate 18 16 Blood Pressure 118/63 121/69 Pulse Oximetry 94 L 94 L Intake & Output 05/13/18 05/14/18 05/14/18 18:59 06:59 18:59 Intake Total 1000 / 1000 1500 / 1500 Output Total 1200 / 1200 Balance 1000 / 1000 300 / 300 Intake: IV 1000 / 1000 1000 / 1000 NS Inj 1,000 ML @ 80 mls/hr IV. 1000 / 1000 1000 / 1000 CONT .[id number] [facility] Rx#:[id number] Oral 500 / 500 Output: Urine 1200 / 1200 Other: Date of Last Bowel Movement 05/08/18
[2018-05-14 13:07] VITALS: BP 131/73; PULSE 76; RESP 18; TEMP 97.5; O2SAT 96
--- NOTE | 2018-05-24 11:31 | MD ---
cc: Jess Ahn MD DATE OF DISCHARGE: 05/14/2018 HISTORY OF PRESENT ILLNESS: This pleasant lady was admitted with diagnosis of known carcinoma of the ascending colon with metastasis. She is now admitted for a right colectomy and treatment of the primary lesion. PAST MEDICAL HISTORY: Carcinoma of the right colon as above noted, diagnosed by the oncology. The patient already underwent chemotherapy previously for the same. Patient was also diagnosed with metastasis of the liver for which she is scheduled to undergo radiofrequency thermal ablation. SOCIAL HISTORY: Noncontributory. FAMILY HISTORY: Noncontributory. PHYSICAL EXAMINATION: She was a pleasant 58-year-old lady in no acute distress. HOSPITAL COURSE: The patient underwent uneventful exploratory laparotomy with right colectomy and primary anastomosis. The patient is kept n.p.o. for the first 48 hours and started on liquids, advanced to diet, and discharged in stable condition with instructions to follow up in my office with a well-healing incision. She is also instructed to follow up with interventional radiology where the radioablation is performed and Oncology is following the patient throughout the stay. Jess Ahn MD SJ/les , 03:42 PM , 03:48 PM
== END 2018-05-14 15:34 | disposition home or self-care (01) ==
LOC: HSDI 11:09 → N03 17:06 → N06 05-10 22:56
PROVIDERS: ADMIT Surgery; ATTEND Surgery
PROC: RSCOLON (2018-05-09 12:53)